=== PATIENT | female | born 1930 | race Caucasian/White ===

== ENCOUNTER 2017-07-17 22:07 | Inpatient (IN) ==
[2017-07-17] MEDS ORDERED: MORPHINE 2 MG/1 ML SYRINGE IV STA (22:45)
[2017-07-17] MEDS ORDERED: ONDANSETRON 4 MG/2 ML VIAL IV STA (22:45)
[2017-07-17] MEDS ORDERED: SODIUM CHLORIDE 0.9% 1,000 ML IV STA (22:45)
--- NOTE | 2017-07-17 22:48 | Emergency Department Note ---
Arrival - Arrival Chief Complaint: Abdominal / Flank Pain Stated Complaint: hurting in back &quizzy ED Nursing Triage Note: C/O LEFT SIDED BACK PAIN THAT RADIATES AROUND TO THE ABDOMEN. + NAUSEA Mode of Arrival: Wheelchair Limitations: No Limitations Source: Patient, Family Time Seen by Provider: 07/17/17 22:30 - History of Present Illness HPI Narrative: The patient complains of a left lower backache for the past week. She recalls no injury. She said he got better for a couple of days but started getting worse again 3 days ago. She describes it as sharp and worse with movement. She has had some nausea but no vomiting, diarrhea or constipation. She has had some questionable hematuria. The patient has a history of back problems and had back surgery many years ago. She denies any fever, rhinorrhea, sore throat , cough or other recent illness. Date of Last Menstrual Period: HYST Review of System - Review of System 12 point system: reviewed and no additional remarkable complaints except as stated - Review of System Constitutional: Absent: fever Head/Ears/Nose/Throat: Absent: nasal drainage, sore throat Respiratory: Absent: cough Cardiovascular: Absent: chest pain Gastrointestinal: Present: nausea. Absent: abdominal pain, vomiting Genitourinary female: Present: hematuria. Absent: dysuria Musculoskeletal: Present: back pain Neurological: Absent: weakness, numbness Medical,Surgical,& Family Hx - Medical History Neurology: History of: Parkinson's Disease (PRE PARKINSON'S) Endocrine: History of: Diabetes Mellitus (NIDDM) - Surgical History Orthopedic Surgeries: Surgical HX of;: Orthopedic Surgery (Hip fracture repair) , Spinal Surgery - Family History Family History: Reports;: Family Diabetes, Family Heart Disease, Family Stroke - Social History Smoking Status: Never smoker Frequency of Alcohol Use: None Type of Drug Use: None Exam Physical Examination: GENERAL: Alert. No acute distress. HEENT: Normocephalic and atraumatic. There is no nasal drainage. No pharyngeal erythema or exudate. NECK: Normal inspection. Supple. No lymphadenopathy or meningismus. LUNGS: No respiratory distress. Clear to auscultation bilaterally, no wheezes, rales or rhonchi. HEART: Regular rate and rhythm. ABDOMEN: Soft, nontender and nondistended with normoactive bowel sounds. BACK: Normal inspection. Mild to moderate left lower back tenderness. No CVA tenderness. No spinal tenderness. No swelling or deformity noted. SKIN: Color normal. Warm and dry. EXTREMITIES: Nontender. Normal range of motion. No pedal edema. NEUROLOGICAL/PSYCHIATRIC: Alert and oriented -3 with normal mood and affect. Cranial nerves normal. No motor or sensory deficit. Vital Signs: Vital Signs Temperature 97.3 F L 07/17/17 22:11 Pulse Rate 83 07/17/17 22:11 Respiratory Rate 18 07/17/17 22:11 Blood Pressure 182/86 07/17/17 22:11 O2 Sat by Pulse Oximetry 96 07/17/17 22:11 Course - Reevaluation(s) Reevaluation #1: The patient appears to be more comfortable after medications. Her urine does show a urinary tract infection and I am going to go ahead and give her some Cipro IV. We are still awaiting the complete chemistry. Time: 00:02 Reevaluation #2: The patient and the family want to be admitted. She lives by herself and they believe she will not be able to take care of herself with her back hurting like it is. In fact that is why the family was called today is because the patient could no longer take care of herself due to the pain. I discussed patient with Dr. Linda and will admit to him. Time: 01:23 Results - Labs CBC & BMP: 07/17/17 23:24 07/17/17 23:24 Lab Results: I have reviewed the patients labs Labs: Laboratory Tests 07/17/17 23:24 Urine Nitrate Positive H Urine Leukocytes Large H Urine RBC <1 Urine WBC 31 Urine WBC Clumps Moderate Urine Bacteria Moderate Ur Culture Indicated? Results to follow Laboratory Tests 07/17/17 23:24 Total Bilirubin < 0.39 AST 33 ALT 26 Alkaline Phosphatase 126 H Globulin 4.3 H - Impressions KUB: 1. Status post surgical changes in with previous cholecystectomy right lower quadrant surgery and previous left hip pinning 2. Nonspecific GI pattern. 3. Vascular calcifications 4. Degenerative spondylosis changes thoracolumbar spine. Disposition Clinical Impression: Back pain, UTI (urinary tract infection) Case discussed with: patient, patient's family Disposition: Still a Patient Condition: Stable Time of Disposition: :29
[2017-07-17] MEDS ORDERED: MORPHINE 2 MG/1 ML SYRINGE ONE (23:17)
[2017-07-17] MEDS ORDERED: ONDANSETRON 4 MG/2 ML VIAL ONE (23:17)
--- NOTE | 2017-07-17 23:37 | XRay Report ---
Exam: XR KUB Date: 07/17/2017 10:44 PM Indication: Abdominal pain back and flank pain Comparison: 03/07/2011 barium enema exam Technical: Supine imaging Findings: Cholecystectomy clips are present. Vascular plaque is present in these splenic artery. The lung bases reveal no acute findings. Degenerative change present thoracolumbar spine. A left sliding Crenshaw compression screw is present in the femoral head and neck region. Phleboliths are present true pelvis. The liver and spleen shadow and renal shadows are partially obscured. Surgical clips in the right lower quadrant present in the deep pelvis. Impression: 1. Status post surgical changes in with previous cholecystectomy right lower quadrant surgery and previous left hip pinning 2. Nonspecific GI pattern. 3. Vascular calcifications 4. Degenerative spondylosis changes thoracolumbar spine. PROCEDURE INTERPRETED AT [facility] DEPARTMENT OF RADIOLOGY Final Report Signed by: Dr. Yogesh Yeager
[2017-07-17 23:41] LABS: Basophils # 0.1 10*3/uL (0.0-0.2); Basophils % 0.5 % (0.0-0.8); Eosinophils # 0.4 10*3/uL (0.0-0.87); Eosinophils % 3.3 % (0.00-10.9); Hematocrit 33.7 VOL% (35.7-47.0); Hemoglobin 10.5 GM/DL (12.0-16.0); Immature Granulocytes % 0.5 %; Immature Granulocytes Absolute 0.06 #; Lymphocytes # 2.5 10*3/uL (1.4-4.0); Lymphocytes % 22.5 % (21.3-54.2); Mean Corpuscular HGB Conc 31.2 GM/DL (32-36); Mean Corpuscular Hemoglobin 27 PG (27-34); Mean Platelet Volume 10.7 FL (9.6-12.0); Monocytes # 1.1 10*3/uL (0.11-0.8); Monocytes % 9.8 % (1.7-12.7); Neutrophils % 63.4 % (38.7-73.9); Platelet Count 273 T/CUMM (130-400); Red Blood Count 3.83 MC/CUMM (3.8-5.5); Red Cell Distribution Width 15.9 % (9.3-17.3); White Blood Count 11.1 T/CUMM (4-12)
[2017-07-17 23:55] LABS: Apearance,Urine Slightly Hazy (Clear); Bacteria,Urine Moderate /HPF (Few); Bilirubin,Urine Negative (Negative); Blood, Urine Negative (Negative); Glucose,Urine (UA) Negative (Negative); Ketones,Urine Negative (Negative); Nitrite,Urine Positive (Negative); Protein,Urine Negative; RBC,Urine <1 /HPF (0-4); Squamous Epithelial Cell,Urine Occasional /HPF (0-10); Transitional Epi Cells,Urine Occasional /HPF (<1); Urine Color Amber (Yellow); Urine Specific Gravity 1.005 (1.001-1.035); WBC,Urine 31 /HPF (0-6)
[2017-07-18] MEDS ORDERED: CIPROFLOXACIN INJ 400 MG in PREMIX 1 EACH IV STA (00:03)
[2017-07-18 00:37] LABS: Alanine Aminotransferase 26 U/L (13-56); Albumin 3.6 G/DL (3.4-5.0); Alkaline Phosphatase 126 U/L (45-117); Aspartate Amino Transferase 33 U/L (0-37); Bilirubin,Total < 0.39 MG/DL (0.2-1.0); Blood Urea Nitrogen 21 MG/DL (7-18); Calcium 8.9 MG/DL (8.5-10.1); Glucose 101 MG/DL (74-106); Osmolality,Calculated 283.3 MOS/KG (273-304); Potassium 4.7 MMOL/L (3.5-5.1); Sodium 141 MMOL/L (136-145); Total Protein 7.9 G/DL (6.4-8.3)
[2017-07-18] MEDS ORDERED: CIPROFLOXACIN 400 MG/200 ML PREMIX IV ONE (00:44)
[2017-07-18] MEDS ORDERED: ONDANSETRON 4 MG/2 ML VIAL IV PRN (02:57)
[2017-07-18] MEDS ORDERED: ACETAMINOPHEN 325 MG TABLET PO PRN (02:57)
[2017-07-18] MEDS ORDERED: GLUCAGON 1 MG VIAL IM PRN (02:57)
[2017-07-18] MEDS ORDERED: MORPHINE 2 MG/1 ML SYRINGE IV PRN (02:57)
[2017-07-18] MEDS ORDERED: DEXTROSE 50% 25 GM/50 ML SYRINGE IV PRN (02:57)
--- NOTE | 2017-07-18 07:11 | Family Practice History&Phys ---
Assessment and Plan (1) UTI (urinary tract infection) Status: Acute Assessment and plan: 07/18/2017: Patient's on IV Cipro. Cultures are pending. Renal ultrasound will be ordered to ensure she does not have any evidence of hydronephrosis. Current Visit: Yes History of Present Illness Chief complaint: Back pain and dysuria History of present illness: Ms. Easley is a 87 year old female Patient is a 87-year-old white female who lives alone and manages her own affairs. Patient states she developed some dysuria and back pain approximately a week ago. Patient states his got worse and she started developing nausea and subjective fever. She presented emergency room was found to have a urinary tract infection. Her vital signs emergency room revealed normal to slightly elevated blood pressure. Patient was admitted for treatment of her urinary tract infection. She has not had any vomiting. She is placed on IV Cipro and cultures are pending. Home Medications Medication Instructions Recorded Confirmed Type Aspirin [Ecotrin] 81 mg PO DAILY 07/18/17 07/18/17 History Atorvastatin [Lipitor] 80 mg PO DAILY 07/18/17 07/18/17 History Citalopram [CeleXA] 20 mg PO DAILY 07/18/17 07/18/17 History Insulin Aspart Prot/Insuln Asp 24 unit SUBCUT BEDTIME 07/18/17 07/18/17 History [NovoLOG Mix 70-30 FlexPen] Insulin Aspart Prot/Insuln Asp 40 unit SQ QAM 07/18/17 07/18/17 History [Novolog Mix 70-30 Flexpen Syrn] Levothyroxine Tab [Synthroid Tab] 75 mcg PO DAILY@0700 07/18/17 07/18/17 History Magnesium Oxide 400 mg PO BID 07/18/17 07/18/17 History OLANZapine [Olanzapine] 2.5 mg PO DAILY 07/18/17 07/18/17 History Ranitidine Tab [Zantac Tab] 150 mg PO BID 07/18/17 07/18/17 History metFORMIN [Glucophage] 1,000 mg PO BID W/MEALS 07/18/17 07/18/17 History Allergies Allergy/AdvReac Type Severity Reaction Status Date / Time No Known Allergies Allergy Unverified 07/18/17 02:12 - Constitutional Constitutional: Present: chills, fatigue, fever(s), weakness. Absent: weight gain, weight loss - EENT Eyes: Absent: blurry vision, loss of vision Ears: Absent: decreased hearing, ear pain Nose, mouth and throat: Absent: nasal congestion, sinus pressure, sore throat - Cardiovascular Cardiovascular: Absent: chest pain at rest, dyspnea, orthopnea, palpitations, PND - Respiratory Respiratory: Absent: cough, dyspnea, dyspnea on exertion, wheezing - Gastrointestinal Gastrointestinal: Present: abdominal pain, nausea. Absent: bloating, diarrhea, dyspepsia, dysphagia, hematochezia, melena, vomiting - Genitourinary Genitourinary: Present: as per HPI, dysuria, urinary frequency - Musculoskeletal Musculoskeletal: Present: back pain. Absent: joint swelling - Neurological Neurological: Absent: confusion, focal weakness, numbness, paresthesias - Psychiatric Psychiatric: Absent: confusion, depression - Endocrine Endocrine: Present: fatigue. Absent: polydipsia, polyphagia - Hematologic/Lymphatic Hematologic/Lymphatic: Absent: easy bleeding, easy bruising Medical,Surgical,& Family Hx - Medical History Neurology: History of: Parkinson's Disease (PRE PARKINSON'S) Endocrine: History of: Diabetes Mellitus (NIDDM) - Surgical History Orthopedic Surgeries: Surgical HX of;: Orthopedic Surgery (Hip fracture repair) , Spinal Surgery - Family History Family History: Reports;: Family Diabetes, Family Heart Disease, Family Stroke - Social History Smoking Status: Never smoker Frequency of Alcohol Use: None Type of Drug Use: None Exam - Constitutional Vitals: Period Temp Pulse Resp BP Sys/Melton Pulse Ox Last 24 Hr 97.3 F-97.3 F 73-86 18-20 110-182/66-94 94-99 Exam: General: Objective patient is a well-developed white female in no acute distress. She is quite pleasant and able to give an excellent history. HEENT: Pupils equal and reactive to light. Patent nares and airway Neck: No meningismus, adenopathy, thyromegaly. There are no auscultated carotid bruits. Cardiovascular: Regular rhythm. No murmurs or gallops Chest: Clear to auscultation without rales rhonchi wheezes. Abdomen: The abdomen is soft and slightly protuberant. Bowel sounds are noted in all quadrants. She did have some diffuse abdominal tenderness directly but no rebound or guarding were noted. Neuro: Cranial nerves intact and DTRs and strength symmetric in all extremities. Dermatologic: No evidence of abnormal lesions or masses. Musculoskeletal: There is no joint swelling or tenderness or deformity. Extremities: There is no calf swelling or tenderness. Results - Labs CBC & BMP: 07/17/17 23:24 07/17/17 23:24 Lab Results: I have reviewed the past 24 hour labs
[2017-07-18] MEDS: INSULIN ASPART PROTAMINE/ASPART 70/30 100 UNIT/ML SUBCUT SCH ×2 (08:24→16:12)
[2017-07-18] MEDS: INSULIN LISPRO 100 UNIT/ML SUBCUT SCH ×4 (08:24→21:14)
[2017-07-18] MEDS: SODIUM CHLORIDE 0.45% 1,000 ML IV SCH ×3 (08:38→19:00)
[2017-07-18] MEDS: CIPROFLOXACIN INJ 400 MG in PREMIX 1 EACH IV SCH ×2 (08:39→21:13)
[2017-07-18] MEDS: PHENAZOPYRIDINE 95 MG TABLET PO SCH ×3 (08:39→21:15)
[2017-07-18] MEDS: ASPIRIN EC 81 MG TABLET PO SCH (08:39)
[2017-07-18] MEDS: FAMOTIDINE 20 MG TABLET PO SCH ×2 (08:39→21:15)
[2017-07-18] MEDS: PANTOPRAZOLE 40 MG TABLET PO SCH (08:39)
[2017-07-18] MEDS: OLANZapine 2.5 MG TABLET PO SCH (08:40)
[2017-07-18] MEDS: LEVOTHYROXINE 75 MCG TABLET PO SCH (08:40)
[2017-07-18] MEDS: metFORMIN 500 MG TABLET PO SCH ×2 (08:40→16:58)
[2017-07-18] MEDS: DOCUSATE SODIUM 100 MG CAPSULE PO SCH ×2 (08:40→21:15)
[2017-07-18] MEDS: MAGNESIUM OXIDE 400 MG TABLET PO SCH ×2 (08:40→21:15)
[2017-07-18] MEDS: ATORVASTATIN 80 MG TABLET PO SCH (08:40)
[2017-07-18] MEDS: traMADol 50 MG TABLET PO PRN ×2 (08:47→18:55)
--- NOTE | 2017-07-18 10:39 | Ultrasound Report ---
Renal ultrasound Indication: Flank pain, urinary tract infection Comparison: None available Findings: Multiple cyst are present on both kidneys, the largest on the right measures up to 1.4 cm. The largest on the left measures up to 2.6 cm. Otherwise the are normal in size and echogenicity. No hydronephrosis or nephrolithiasis is seen. The right renal length is 10.4 cm. The left renal length is 9.4 cm. No free fluid or other abnormality is seen. Impression: Bilateral simple appearing renal cysts. No other evidence of abnormality demonstrated. Ultrasound images stored and captured. PROCEDURE INTERPRETED AT [facility] DEPARTMENT OF RADIOLOGY Final Report Signed by: Dr. Franklin Fortune
[2017-07-19] MEDS: LEVOTHYROXINE 75 MCG TABLET PO SCH (06:20)
[2017-07-19] MEDS: SODIUM CHLORIDE 0.45% 1,000 ML IV SCH ×3 (06:20→16:39)
--- NOTE | 2017-07-19 07:56 | Family Practice Progress Note ---
Family Practice - PN: Subj Interval history: Patient states she had a good night and she is not having any dysuria though she is having urinary frequency. I told we have been giving her quite a bit of fluids to augment her urine output. She understands. She is a delightful little lady and really has no complaints this morning. Exam (Progress Note) - Constitutional Vitals: Period Temp Pulse Resp BP Sys/Melton Pulse Ox Last 24 Hr 97.9 F-98.4 F 79-92 18-19 144-166/67-83 89-96 Exam: Objective well-developed white female no acute distress. She is able give an excellent history. She is lying flat in bed and appears comfortable. Cardiovascular: Heart rate is regular without murmurs or gallops. Respiratory: Lungs clear to auscultation bilaterally. Abdomen: The abdomen is slightly protuberant but nontender to palpation this morning. Bowel sounds were appreciated. Results - Labs CBC & BMP: 07/17/17 23:24 07/17/17 23:24 Lab Results: I have reviewed the past 24 hour labs Assessment and Plan (1) UTI (urinary tract infection) Status: Acute Assessment and plan: 07/18/2017: Patient's on IV Cipro. Cultures are pending. Renal ultrasound will be ordered to ensure she does not have any evidence of hydronephrosis. 07/19/2017: Patient's culture results are not resulted. There is no evidence of hydronephrosis on her ultrasound. Current Visit: Yes
[2017-07-19] MEDS: INSULIN LISPRO 100 UNIT/ML SUBCUT SCH ×4 (09:27→21:08)
[2017-07-19] MEDS: INSULIN ASPART PROTAMINE/ASPART 70/30 100 UNIT/ML SUBCUT SCH ×2 (09:28→16:39)
[2017-07-19] MEDS: CIPROFLOXACIN INJ 400 MG in PREMIX 1 EACH IV SCH ×2 (09:29→21:10)
[2017-07-19] MEDS: ASPIRIN EC 81 MG TABLET PO SCH (09:29)
[2017-07-19] MEDS: ATORVASTATIN 80 MG TABLET PO SCH (09:30)
[2017-07-19] MEDS: DOCUSATE SODIUM 100 MG CAPSULE PO SCH ×2 (09:30→21:08)
[2017-07-19] MEDS: PHENAZOPYRIDINE 95 MG TABLET PO SCH ×3 (09:31→21:08)
[2017-07-19] MEDS: MAGNESIUM OXIDE 400 MG TABLET PO SCH ×2 (09:31→21:08)
[2017-07-19] MEDS: FAMOTIDINE 20 MG TABLET PO SCH ×2 (09:31→21:08)
[2017-07-19] MEDS: PANTOPRAZOLE 40 MG TABLET PO SCH (09:31)
[2017-07-19] MEDS: metFORMIN 500 MG TABLET PO SCH ×2 (09:32→17:19)
[2017-07-19] MEDS: OLANZapine 2.5 MG TABLET PO SCH (09:32)
[2017-07-19] MEDS: traMADol 50 MG TABLET PO PRN ×4 (09:44→21:07)
[2017-07-20] MEDS: SODIUM CHLORIDE 0.45% 1,000 ML IV SCH ×4 (04:08→20:50)
[2017-07-20] MEDS: LEVOTHYROXINE 75 MCG TABLET PO SCH (06:03)
[2017-07-20] MEDS: CIPROFLOXACIN INJ 400 MG in PREMIX 1 EACH IV SCH ×2 (08:12→20:56)
[2017-07-20] MEDS: INSULIN LISPRO 100 UNIT/ML SUBCUT SCH ×4 (08:13→21:14)
[2017-07-20] MEDS: INSULIN ASPART PROTAMINE/ASPART 70/30 100 UNIT/ML SUBCUT SCH ×2 (08:13→18:21)
[2017-07-20] MEDS: MAGNESIUM OXIDE 400 MG TABLET PO SCH ×2 (08:14→20:52)
[2017-07-20] MEDS: ASPIRIN EC 81 MG TABLET PO SCH (08:14)
[2017-07-20] MEDS: PANTOPRAZOLE 40 MG TABLET PO SCH (08:14)
[2017-07-20] MEDS: traMADol 50 MG TABLET PO PRN ×3 (08:14→20:57)
[2017-07-20] MEDS: OLANZapine 2.5 MG TABLET PO SCH (08:14)
[2017-07-20] MEDS: ATORVASTATIN 80 MG TABLET PO SCH (08:14)
[2017-07-20] MEDS: PHENAZOPYRIDINE 95 MG TABLET PO SCH (08:14)
[2017-07-20] MEDS: DOCUSATE SODIUM 100 MG CAPSULE PO SCH ×2 (08:14→20:52)
[2017-07-20] MEDS: FAMOTIDINE 20 MG TABLET PO SCH ×2 (08:15→20:52)
[2017-07-20] MEDS: metFORMIN 500 MG TABLET PO SCH (08:15)
--- NOTE | 2017-07-20 09:19 | Internal Med Progress Note ---
Assessment and Plan (1) Back pain Status: Acute Assessment and plan: 87-year-old female admitted to acute care * Back pain. Patient is having back pain off and on for past 2 weeks. She denies any falls or injuries. It is sharp pain which gets worse with the movement. Will check x-ray of lumbosacral spine and thoracic spine. She may require MRI. Will get PT and OT to see the patient. We will start her on muscle relaxant. * UTI. Patient's cultures are consistent with contaminant. She is on IV Cipro * Diabetes. Continue insulin * Hyperlipidemia. Continue atorvastatin Current Visit: Yes (2) Depression Status: Acute Current Visit: Yes (3) Diabetes Status: Acute Current Visit: Yes (4) Hyperlipidemia Status: Acute Current Visit: Yes (5) Gastroesophageal reflux disease Status: Acute Current Visit: Yes (6) UTI (urinary tract infection) Status: Acute Current Visit: Yes Internal Medicine - PN: Subj Interval history: Patient seen and examined. Chart reviewed. Patient is complaining of low back pain. Her pain has not improved. She has been having difficulty to get around. This has been going off and on for past few weeks. She was admitted and started on antibiotics. Her urine culture shows contamination. She is on IV Cipro Exam (Progress Note) - Constitutional Vitals: Period Temp Pulse Resp BP Sys/Melton Pulse Ox Last 24 Hr 97.7 F-98.9 F 78-86 17- 137-171/67-94 90-93 Exam: Examination: GENERAL: NAD. NECK: Neck is supple. CVS: Regular rate and rhythm. S1 and S2 are normal. RESPIRATORY: Lungs are clear. No rales or rhonchi. ABDOMEN: Soft and nontender. Abdomen is protuberant. Bowel sounds are present. No hepatosplenomegaly. EXT: No edema. Peripheral pulses are present. [employer]: Patient is awake, alert and oriented to time place and person. Motor strength is 3-4/5 SKIN: Warm and dry. MSK: She has some spasm in the lumbosacral spine. Results - Labs CBC & BMP: 07/17/17 23:24 07/17/17 23:24
[2017-07-20 09:59] LABS: Basophils % 0.3 % (0.0-0.8); Eosinophils # 0.5 10*3/uL (0.0-0.87); Eosinophils % 3.6 % (0.00-10.9); Hematocrit 34.2 VOL% (35.7-47.0); Hemoglobin 10.2 GM/DL (12.0-16.0); Immature Granulocytes % 0.5 %; Immature Granulocytes Absolute 0.06 #; Lymphocytes # 4.7 10*3/uL (1.4-4.0); Lymphocytes % 36.4 % (21.3-54.2); Mean Corpuscular HGB Conc 29.8 GM/DL (32-36); Mean Corpuscular Hemoglobin 27 PG (27-34); Mean Corpuscular Volume 91.4 FL (87-102); Mean Platelet Volume 10.2 FL (9.6-12.0); Monocytes # 1.1 10*3/uL (0.11-0.8); Monocytes % 8.6 % (1.7-12.7); Neutrophils # 6.6 10*3/uL (1.4-7.4); Neutrophils % 50.6 % (38.7-73.9); Platelet Count 252 T/CUMM (130-400); Red Blood Count 3.74 MC/CUMM (3.8-5.5); Red Cell Distribution Width 15.9 % (9.3-17.3); White Blood Count 12.9 T/CUMM (4-12)
[2017-07-20 10:28] LABS: Calcium 7.8 MG/DL (8.5-10.1); Osmolality,Calculated 281.4 MOS/KG (273-304); Potassium 3.6 MMOL/L (3.5-5.1)
--- NOTE | 2017-07-20 10:57 | XRay Report ---
XR thoracic spine 2V ap/lat Indication: Back pain Comparison: None available Findings: No fracture is seen. Vertebral body heights and alignment are normal. The disc space heights are well-maintained. There is hypertrophic osteophytes with bridging present at multiple levels. No other significant degenerative change is present. Impression: Hypertrophic osteophytes with bridging, can be seen with diffuse idiopathic skeletal hyperostosis. PROCEDURE INTERPRETED AT [facility] DEPARTMENT OF RADIOLOGY Final Report Signed by: Dr. Franklin Fortune
--- NOTE | 2017-07-20 11:39 | XRay Report ---
XR lumbar spine w flex/ext, 8 images Clinical Information: Back pain Comparison: None available Findings: Multilevel degenerative changes are noted throughout the lumbar spine. Vertebral body heights and intervertebral disc spaces are generally maintained. No pars defects are visualized on the oblique images. Mild-moderate disc space loss is noted at L4-5 and L5-S1. There is also grade 1 retrolisthesis of L4 relative to L5. Advanced facet arthropathy is noted at L3-S1. There is moderate (30-40%) height loss at L1, which is age-indeterminate. Flexion and extension views do not demonstrate evidence of abnormal translation of vertebral bodies. Atherosclerotic changes of the abdominal aorta are noted. Postsurgical changes with orthopedic hardware at the left proximal femur are partially imaged. Cholecystectomy clips noted. Impression: No acute fracture or subluxation in the Lumbar spine. Age-indeterminate compression deformity at L1. Correlate with focal tenderness. Moderate to advanced degenerative changes as detailed above. PROCEDURE INTERPRETED AT [facility] DEPARTMENT OF RADIOLOGY Final Report Signed by: Mayank Grigsby
--- NOTE | 2017-07-20 12:38 | Pain Management Consult Note ---
Assessment and Plan (1) Fracture, lumbar vertebra, compression Problem details: New onset low back pain with L1 fracture on x-ray Status: Acute Assessment and plan: . Lumbar compression fracture. The patient has new onset low back pain that started 2 weeks ago spontaneously and then suddenly worse 2 days ago. She is essentially bedbound due to the severity of her pain. X-rays demonstrate a L1 fracture with approximately 40% height loss, with both superior and inferior endplate involvement. This does appear to be recent however it is problematic dating the fracture by x-ray alone. Will arrange MRI lumbosacral spine, and if recent fracture I think it is medically necessary to proceed with kyphoplasty given the severity of pain and loss of activities of daily living. The way she is going now she will not be able to care for self. If we can fix a fracture and mobilize her she can once again become more independent. y Current Visit: Yes Qualifiers: Encounter type: initial encounter Lumbar vertebra fracture level: L1 Fracture type: closed Qualified Code(s): S32.010A - Wedge compression fracture of first lumbar vertebra, initial encounter for closed fracture History of Present Illness Chief complaint: Low back pain History of present illness: Ms. Easley is a 87 year old female with recent onset low back pain. She denies injury. Throbbing aching pain. Started 2 weeks ago spontaneously and then suddenly 2 days ago became intolerable. Over the past 2 days she has not been out of bed but twice to use the restroom. The pain is a throbbing aching pain worse with any movement. It is constant. Home Medications Medication Instructions Recorded Confirmed Type Aspirin [Ecotrin] 81 mg PO DAILY 07/18/17 07/18/17 History Atorvastatin [Lipitor] 80 mg PO DAILY 07/18/17 07/18/17 History Citalopram [CeleXA] 20 mg PO DAILY 07/18/17 07/18/17 History Insulin Aspart Prot/Insuln Asp 24 unit SUBCUT BEDTIME 07/18/17 07/18/17 History [NovoLOG Mix 70-30 FlexPen] Insulin Aspart Prot/Insuln Asp 40 unit SQ QAM 07/18/17 07/18/17 History [Novolog Mix 70-30 Flexpen Syrn] Levothyroxine Tab [Synthroid Tab] 75 mcg PO DAILY@0700 07/18/17 07/18/17 History Magnesium Oxide 400 mg PO BID 07/18/17 07/18/17 History OLANZapine [Olanzapine] 2.5 mg PO DAILY 07/18/17 07/18/17 History Ranitidine Tab [Zantac Tab] 150 mg PO BID 07/18/17 07/18/17 History metFORMIN [Glucophage] 1,000 mg PO BID W/MEALS 07/18/17 07/18/17 History Allergies Allergy/AdvReac Type Severity Reaction Status Date / Time No Known Allergies Allergy Unverified 07/18/17 02:12 Medical,Surgical,& Family Hx - Medical History Neurology: History of: Parkinson's Disease (PRE PARKINSON'S) Endocrine: History of: Diabetes Mellitus (NIDDM) - Surgical History Orthopedic Surgeries: Surgical HX of;: Orthopedic Surgery (Hip fracture repair) , Spinal Surgery - Family History Family History: Reports;: Family Diabetes, Family Heart Disease, Family Stroke - Social History Smoking Status: Never smoker Frequency of Alcohol Use: None Type of Drug Use: None - Constitutional Constitutional: Present: fatigue, malaise - Gastrointestinal Gastrointestinal: Present: constipation - Musculoskeletal Musculoskeletal: Present: back pain - Neurological Neurological: Present: paresthesias Exam - Constitutional Vitals: Period Temp Pulse Resp BP Sys/Melton Pulse Ox Last 24 Hr 97.7 F-98.9 F 78-86 17-29 137-171/67-94 90-93 General appearance: mild distress, over weight - Head Head exam: Present: normocephalic - Respiratory Respiratory exam: Present: clear to auscultation bilaterally - Cardiovascular Cardiovascular exam: Present: RRR - GI/Abdominal GI/Abdominal exam: Present: normal bowel sounds - Back Exam Back exam: Present: vertebral tenderness - Neurological Exam Neurological exam: Present: alert, oriented X3, CN II-XII intact - Skin Skin exam: Present: normal color Results - Labs CBC & BMP: 07/20/17 09:50 07/20/17 09:50
[2017-07-20] MEDS: METHOCARBAMOL 750 MG TABLET PO SCH ×2 (14:19→20:52)
--- NOTE | 2017-07-20 17:53 | Magnetic Resonance Report ---
Exam: MRI thoracic spine without contrast Indication: 87-year-old female with worsening back pain Comparison: No relevant comparisons Technique: Multisequence, multiplanar imaging of the thoracic spine was performed without contrast Findings: Thoracic kyphosis, vertebral body heights and marrow signal are preserved. Cord signal is normal. No intra or extradural abnormalities. Disc desiccation throughout with no significant disc bulging. Small anterolateral osteophytes are noted, age-appropriate. Inferior endplate deformity at L1 with reactive edema No soft tissue abnormalities. Impression: 1. Unremarkable noncontrast MRI thoracic spine 2. Slight deformity with reactive changes involving the inferior endplate of L1, cannot exclude insufficiency fracture PROCEDURE INTERPRETED AT [facility] DEPARTMENT OF RADIOLOGY Final Report Signed by: Ayde Lara MD
--- NOTE | 2017-07-20 18:34 | Magnetic Resonance Report ---
Exam: MRI lumbar spine without contrast Indication: 87 yearsfemale with worsening back pain Comparison: No relevant comparisons Technique: Multisequence, multiplanar imaging of the lumbar spine was performed without contrast Findings: with straightening of the lumbar lordosis. Deformity along the inferior endplate of L1 with curvilinear low and high T1 signal abnormality. Adjacent T2 signal within the prevertebral soft tissues Cord signal is normal terminating at T12-L1. No intra or extradural abnormalities. Disc spaces desiccation throughout with loss of disc space height at L4 S1. T12-L1: Unremarkable L1-L2: Unremarkable L2-L3: Slight annular disc bulging, asymmetric right lateral hypertrophic endplate changes. No significant central or foraminal stenosis L3-L4: Hypertrophic endplate changes, asymmetric left lateral with moderate facet arthrosis. Mild trefoil configuration of the spinal canal with no significant central or foraminal stenosis L4-L5: Annular disc bulging, predominately anterolateral with Hypertrophic endplate changes. Moderate to severe facet arthrosis. Effacement of the lateral recesses bilaterally. No significant central stenosis. Annular fissuring extending right lateral to posterior at midline. Moderate bilateral foraminal narrowing, slightly more significant on the left L5-S1: Slight annular disc bulging with hypertrophic endplate changes and moderate facet arthrosis. No significant central stenosis. Moderate to severe bilateral foraminal narrowing No soft tissue abnormalities. Impression: 1. Inferior endplate insufficiency fracture at L1 2. En bloc retrolisthesis at L4 with straightening of the lumbar lordosis 3. Degenerative disc changes with right lateral to posterior annular fissuring of L4 with near complete loss of disc space height and moderate bilateral foraminal narrowing 4. Moderate to severe bilateral foraminal narrowing at L5-S1 PROCEDURE INTERPRETED AT [facility] DEPARTMENT OF RADIOLOGY Final Report Signed by: Ayde Lara MD
[2017-07-21] MEDS: SODIUM CHLORIDE 0.45% 1,000 ML IV SCH ×2 (04:08→10:16)
[2017-07-21] MEDS: LEVOTHYROXINE 75 MCG TABLET PO SCH ×2 (06:21→15:29)
[2017-07-21] MEDS: INSULIN LISPRO 100 UNIT/ML SUBCUT SCH ×4 (07:30→21:41)
--- NOTE | 2017-07-21 07:41 | Event Note ---
MRI shows acute L1 fx. Plan on Kypho later this am, around noon.
[2017-07-21] MEDS: INSULIN ASPART PROTAMINE/ASPART 70/30 100 UNIT/ML SUBCUT SCH ×2 (08:00→16:52)
[2017-07-21] MEDS ORDERED: ceFAZolin 2,000 MG in SODIUM CHLORIDE 0.9% 100 ML IV ONE (08:00)
--- NOTE | 2017-07-21 08:43 | Internal Med Progress Note ---
Assessment and Plan (1) Back pain Status: Acute Assessment and plan: 87-year-old female admitted to acute care * Back pain. Results of MRI noted. She will require kyphoplasty. Plan today. 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 She may require nerve blocks. Hopefully this will make her pain better control and she can resume independent living. * UTI. Change to p.o. Cipro * Diabetes. Continue insulin * Hyperlipidemia. Continue atorvastatin * Consult swing bed unit for PT and OT. Current Visit: Yes (2) Depression Status: Acute Current Visit: Yes (3) Diabetes Status: Acute Current Visit: Yes (4) Hyperlipidemia Status: Acute Current Visit: Yes (5) Gastroesophageal reflux disease Status: Acute Current Visit: Yes (6) UTI (urinary tract infection) Status: Acute Current Visit: Yes Internal Medicine - PN: Subj Interval history: Patient seen and examined. Chart reviewed. She appears to be more comfortable this morning. Her pain is better controlled but she is quite uncomfortable when she moves around. Exam (Progress Note) - Constitutional Vitals: Period Temp Pulse Resp BP Sys/Melton Pulse Ox Last 24 Hr 97.2 F-99.2 F 78-88 18-20 124-155/60-86 90-96 Exam: Examination: GENERAL: NAD. NECK: Neck is supple. CVS: Regular rate and rhythm. RESPIRATORY: Lungs are clear. Abdomen: Soft and nontender. Bowel sounds are present ELECTROPHYSIOLOGY SCIENTIST: Patient is awake, alert and oriented to time place and person. Motor strength is 3-4/5 SKIN: Warm and dry. MSK: She has some spasm in the lumbosacral spine. Results - Labs CBC & BMP: 07/20/17 09:50 07/20/17 09:50 Lab Results: I have reviewed the past 24 hour labs
[2017-07-21] MEDS: FAMOTIDINE 20 MG TABLET PO SCH ×2 (09:00→21:42)
[2017-07-21] MEDS: METHOCARBAMOL 750 MG TABLET PO SCH ×3 (09:00→21:42)
[2017-07-21] MEDS: DOCUSATE SODIUM 100 MG CAPSULE PO SCH ×2 (09:00→21:42)
[2017-07-21] MEDS: MAGNESIUM OXIDE 400 MG TABLET PO SCH ×2 (09:00→21:42)
[2017-07-21] MEDS: ASPIRIN EC 81 MG TABLET PO SCH (09:00)
[2017-07-21] MEDS: DEXTROSE 5% NACL 0.45% 1,000 ML IV SCH (09:10)
--- NOTE | 2017-07-21 10:26 | Order Completion Report ---
See report scanned to EMR
[2017-07-21 10:53] LABS: Basophils % 0.4 % (0.0-0.8); Eosinophils % 5.5 % (0.00-10.9); Hematocrit 30.6 VOL% (35.7-47.0); Hemoglobin 9.2 GM/DL (12.0-16.0); Lymphocytes % 27.6 % (21.3-54.2); Mean Corpuscular HGB Conc 30.1 GM/DL (32-36); Mean Corpuscular Hemoglobin 27 PG (27-34); Mean Platelet Volume 10.5 FL (9.6-12.0); Monocytes % 10.5 % (1.7-12.7); Neutrophils % 55.4 % (38.7-73.9); Platelet Count 231 T/CUMM (130-400); Red Blood Count 3.44 MC/CUMM (3.8-5.5); White Blood Count 8.2 T/CUMM (4-12)
[2017-07-21 10:54] LABS: Eosinophils # 0.5 10*3/uL (0.0-0.87); Immature Granulocytes % 0.6 %; Immature Granulocytes Absolute 0.05 #; Lymphocytes # 2.3 10*3/uL (1.4-4.0); Monocytes # 0.9 10*3/uL (0.11-0.8); Neutrophils # 4.6 10*3/uL (1.4-7.4)
[2017-07-21 11:08] LABS: Calcium 7.7 MG/DL (8.5-10.1); Osmolality,Calculated 281.4 MOS/KG (273-304); Potassium 4.1 MMOL/L (3.5-5.1)
[2017-07-21] MEDS ORDERED: PROPOFOL 200 MG/20 ML VIAL IV ONE (12:15)
[2017-07-21] MEDS ORDERED: BUPIVACAINE 0.5% 50 ML VIAL ONE (12:35)
[2017-07-21] MEDS ORDERED: TISSUE ADHESIVE 1 EACH APPLICATOR TOP ONE (12:50)
--- NOTE | 2017-07-21 13:05 | Operative Note ---
Date of procedure: 07/21/17 Pre-op diagnosis: Lumbar compression fracture Post-op diagnosis: same Procedure: Preoperative diagnosis: #1 lumbar compression fracture acute L1 Postoperative diagnosis: Same Procedure: Kyphoplasty L1 Anesthesia: MAC Complications: None Findings: The patient tolerated the procedure well Estimated blood loss: Minimal History of present illness: The patient very pleasant 87-year-old female who sustained a lumbar compression fracture over the past 2 weeks and has severe pain associated with it to the point that she is having trouble even mobilizing and is essentially bedbound. Due to the loss of activities of daily living and severe severe pain she is a candidate for kyphoplasty. After today's procedure is reasonable to mobilize her. Procedure note: The risks benefits and indications of the procedure were explained to the patient and her family, she understood these, and they wish to proceed. The patient was placed in the prone position on the operating table, all pressure points padded, and then her back was prepped with alcohol ChloraPrep. Her back then was sterilely draped in strict sterile technique was used throughout the procedure. Skin was raised above the pedicles of L1 and viewed under fluoroscopy. A stab wound was 11 blade scalpel was made through the skin wheals into the stab wounds advanced the 11-gauge bone trochars. These were advanced under careful fluoroscopic control until destruct the posterior aspect of the pedicles bilaterally using an oblique approach at L1. Using a bone mallet the bone trochars were driven down to the pedicles and into the posterior aspect of the L1 vertebral body. Once adequate bone trocar placement had been achieved I then obtain a biopsy to rule out other pathological causes of the fracture. The advertising assistant manager then mixed the bone cement which was radiopaque methylmethacrylate. I then placed the hand drill into the vertebral body to make a pathway for the balloon bone tamps. The balloon bone tamps and were placed into the vertebral body and inflated between 100 150 pounds per square and she is holding between 3 and 4 cc of contrast of fluid. I then removed the balloon bone tamps. Using the bone filler syringe with long filler needle attached I then placed the needle into the device of the bone trochars and injected the bone cement under continuous lateral fluoroscopy. A total of 5-1/2 cc of the bone cement was injected into the L1 vertebral body. There was excellent filling throughout the vertebral body. The status then replaced back into the bone trochars and the bone trochars removed intact. Using skin glue the skin was closed sterilely. The patient then was taken to recovery in satisfactory condition. Anesthesia: MAC Surgeon / Physician: Keanu Pino Estimated blood loss: minimal Specimens: none sent Condition: stable Disposition: PACU Results - Labs CBC & BMP: 07/21/17 10:35 07/21/17 10:35 Discharge Plan - Discharge Data Condition at Discharge: Stable Discharge Diet: advance to your usual diet Activity: increase activity as tolerated (With assistance) Hygiene: may shower Weight Bearing at Discharge: weight bear as tolerated (With assistance) - Discharge Medications No Action Insulin Aspart Prot/Insuln Asp [Novolog Mix 70-30 Flexpen Syrn] 40 unit SQ QAM metFORMIN [Glucophage] 1,000 mg PO BID W/MEALS OLANZapine [Olanzapine] 2.5 mg PO DAILY Citalopram [CeleXA] 20 mg PO DAILY Atorvastatin [Lipitor] 80 mg PO DAILY Levothyroxine Tab [Synthroid Tab] 75 mcg PO DAILY@0700 Ranitidine Tab [Zantac Tab] 150 mg PO BID Insulin Aspart Prot/Insuln Asp [NovoLOG Mix 70-30 FlexPen] 24 unit SUBCUT BEDTIME Aspirin [Ecotrin] 81 mg PO DAILY Magnesium Oxide 400 mg PO BID - Follow Up or Referral - Forms/Instructions
[2017-07-21] MEDS ORDERED: KETAMINE 500 MG/10 ML VIAL ONE (13:06)
[2017-07-21] MEDS ORDERED: HYDROmorphone 2 MG/1 ML VIAL IV PRN (13:19)
[2017-07-21] MEDS ORDERED: ONDANSETRON 4 MG/2 ML VIAL IV PRN (13:19)
--- NOTE | 2017-07-21 13:29 | Anesthesia Post-Op ---
Anesthesia Post OP - Post Ansesthetic Evaluation Patient seen in post op: Yes Resp: within normal limits CV: within normal limits Mental: within normal limits Temp: within normal limits [id number]: within normal limits Nausea and Vomiting: within normal limits Pain: within normal limits
[2017-07-21] MEDS ORDERED: LACTATED RINGERS 1,000 ML IV SCH (13:30)
[2017-07-21] MEDS: ATORVASTATIN 80 MG TABLET PO SCH (15:28)
[2017-07-21] MEDS: OLANZapine 2.5 MG TABLET PO SCH (15:29)
[2017-07-21] MEDS: PANTOPRAZOLE 40 MG TABLET PO SCH (15:29)
[2017-07-21] MEDS: traMADol 50 MG TABLET PO PRN (21:42)
[2017-07-22] MEDS: DEXTROSE 5% NACL 0.45% 1,000 ML IV SCH (05:04)
[2017-07-22] MEDS: LEVOTHYROXINE 75 MCG TABLET PO SCH (07:07)
[2017-07-22 07:41] LABS: Basophils % 0.4 % (0.0-0.8); Eosinophils # 0.5 10*3/uL (0.0-0.87); Eosinophils % 5.7 % (0.00-10.9); Hematocrit 30.8 VOL% (35.7-47.0); Immature Granulocytes % 0.5 %; Immature Granulocytes Absolute 0.04 #; Lymphocytes # 1.8 10*3/uL (1.4-4.0); Lymphocytes % 20.8 % (21.3-54.2); Mean Corpuscular HGB Conc 29.2 GM/DL (32-36); Mean Corpuscular Hemoglobin 26 PG (27-34); Mean Corpuscular Volume 90.1 FL (87-102); Mean Platelet Volume 10.8 FL (9.6-12.0); Monocytes # 0.9 10*3/uL (0.11-0.8); Monocytes % 10.9 % (1.7-12.7); Neutrophils # 5.2 10*3/uL (1.4-7.4); Neutrophils % 61.7 % (38.7-73.9); Platelet Count 236 T/CUMM (130-400); Red Blood Count 3.42 MC/CUMM (3.8-5.5); Red Cell Distribution Width 16.4 % (9.3-17.3); White Blood Count 8.4 T/CUMM (4-12)
[2017-07-22] MEDS: INSULIN LISPRO 100 UNIT/ML SUBCUT SCH ×2 (07:57→12:27)
[2017-07-22 08:11] LABS: Calcium 8.3 MG/DL (8.5-10.1); Osmolality,Calculated 285.3 MOS/KG (273-304); Potassium 4.9 MMOL/L (3.5-5.1)
[2017-07-22] MEDS: INSULIN ASPART PROTAMINE/ASPART 70/30 100 UNIT/ML SUBCUT SCH (08:38)
[2017-07-22] MEDS: ATORVASTATIN 80 MG TABLET PO SCH (08:39)
[2017-07-22] MEDS: OLANZapine 2.5 MG TABLET PO SCH (08:39)
[2017-07-22] MEDS: MAGNESIUM OXIDE 400 MG TABLET PO SCH (08:39)
[2017-07-22] MEDS: traMADol 50 MG TABLET PO PRN (08:39)
[2017-07-22] MEDS: FAMOTIDINE 20 MG TABLET PO SCH (08:39)
[2017-07-22] MEDS: ASPIRIN EC 81 MG TABLET PO SCH (08:39)
[2017-07-22] MEDS: METHOCARBAMOL 750 MG TABLET PO SCH ×2 (08:39→15:17)
[2017-07-22] MEDS: DOCUSATE SODIUM 100 MG CAPSULE PO SCH (08:39)
[2017-07-22] MEDS: PANTOPRAZOLE 40 MG TABLET PO SCH (08:40)
[2017-07-22] MEDS ORDERED: DEXTROSE 50% 25 GM/50 ML VIAL IV PRN (10:30)
--- NOTE | 2017-07-22 11:12 | Event Note ---
She is POD #1 and doing well. Very little pain and ambulating with walker. She should do well with discharge to swing bed or home. n
[2017-07-22 11:58] VITALS: BP 145/73
--- NOTE | 2017-07-22 13:16 | Discharge Summary ---
Hospital Course - Hospital Course Hospital Course: 87-year-old female admitted to acute care with back pain. She has history of diabetes, hypertension, hypothyroidism, depression, gastroesophageal reflux disease, hyperlipidemia. Initial impression was that patient probably had a UTI complicating her back pain. Her back pain has been going on for couple of weeks and was quite severe. He was evaluated with x-rays and MRIs and was found to have compression fracture. She underwent kyphoplasty of L1 vertebra. She has done well after the procedure. She is quite weak and debilitated. She lives alone at home. We will discharge her to swing bed today. She will benefit from inpatient therapy. Diagnosis - Discharge Diagnosis (1) Back pain Status: Acute (2) Depression Status: Acute (3) Diabetes Status: Acute (4) Hyperlipidemia Status: Acute (5) Gastroesophageal reflux disease Status: Acute (6) UTI (urinary tract infection) Status: Acute Specialty Discharge - Follow Up or Referrals Discharge Plan - Discharge Data Disposition: Disch/Xfer to Snf Condition at Discharge: Stable Discharge Diet: advance to your usual diet, diabetic diet Activity: as per physical therapy - Discharge Medications New Citalopram [CeleXA] 20 mg PO BEDTIME tablet Methocarbamol Tab [Robaxin Tab] 750 mg PO TID tablet traMADol TAB [Ultram] 50 mg PO Q4H PRN tablet PRN Reason: Pain Mild (1-3) Continue Insulin Aspart Prot/Insuln Asp [NovoLOG Mix 70-30 FlexPen] 40 unit SQ QAM metFORMIN [Glucophage] 1,000 mg PO BID W/MEALS OLANZapine [Olanzapine] 2.5 mg PO DAILY Citalopram [CeleXA] 20 mg PO DAILY Atorvastatin [Lipitor] 80 mg PO DAILY Levothyroxine Tab [Synthroid Tab] 75 mcg PO DAILY@0700 Ranitidine Tab [Zantac Tab] 150 mg PO BID Insulin Aspart Prot/Insuln Asp [NovoLOG Mix 70-30 FlexPen] 24 unit SUBCUT BEDTIME Aspirin [Ecotrin] 81 mg PO DAILY Magnesium Oxide 400 mg PO BID - Follow Up or Referral - Forms/Instructions Instructions: Urinary Tract Infection in Women (DC), Pain Management After Surgery (DC), Kyphoplasty (DC) Exam - Constitutional Vitals: Period Temp Pulse Resp BP Sys/Melton Pulse Ox Last 24 Hr 97.3 F-98.3 F 70-82 14-22 132-197/63-95 91-95 Exam: Examination: GENERAL: NAD. NECK: Neck is supple. CVS: Regular rate and rhythm. RESPIRATORY: Lungs are clear. Abdomen: Soft and nontender. Bowel sounds are present SILO ERECTOR: Patient is awake, alert and oriented to time place and person. Motor strength is 3-4/5 SKIN: Warm and dry. Discharge Results Labs on day of discharge: Labs from last 24 hours 07/22/17 07/22/17 07/22/17 11:34 07:10 06:57 WBC RBC Hgb Hct MCV MCH MCHC RDW Plt Count MPV Neut % (Auto) Lymph % (Auto) [place] % (Auto) Eos % (Auto) Baso % (Auto) Neut # (Auto) Lymph # (Auto) [place] # (Auto) Eos # (Auto) Baso # (Auto) Immature Gran % Nucleated RBC % Immature Gran # Nucleated RBCs # Immature Plt Fraction Sodium 141 Potassium 4.9 Chloride 106 Carbon Dioxide 33 H Anion Gap 6.9 BUN 15 Creatinine 0.90 GFR Calculation 61 BUN/Creatinine Ratio 16.00 Glucose 164 H POC Glucose 151 H 177 H Calculated Osmolality 285.3 Calcium 8.3 L 07/22/17 07/21/17 07/21/17 06:57 19:59 16:04 WBC 8.4 RBC 3.42 L Hgb 9.0 L Hct 30.8 L MCV 90.1 MCH 26 L MCHC 29.2 L RDW 16.4 Plt Count 236 MPV 10.8 Neut % (Auto) 61.7 Lymph % (Auto) 20.8 L [place] % (Auto) 10.9 Eos % (Auto) 5.7 Baso % (Auto) 0.4 Neut # (Auto) 5.2 Lymph # (Auto) 1.8 [place] # (Auto) 0.9 H Eos # (Auto) 0.5 Baso # (Auto) 0.0 Immature Gran % 0.5 Nucleated RBC % 0.0 Immature Gran # 0.04 Nucleated RBCs # 0.00 Immature Plt Fraction 0.0 Sodium Potassium Chloride Carbon Dioxide Anion Gap BUN Creatinine GFR Calculation BUN/Creatinine Ratio Glucose POC Glucose 195 H 217 H Calculated Osmolality Calcium DS: Provider Date of admission: 07/18/17 01:29 Primary care physician: . No PCP Attending physician on admission: Antelmo Headley MD Consults: 07/18/17 02:57 Consult to Case Mgmt/Social Srvs [CONS] Routine Reason for Case Mgmt/Social Srvs: Discharge Planning 07/20/17 09:28 Consult to Occupational Therapy [CONS] Routine Reason for Occupational Therapy: Evaluate and Treat Consult to Physical Therapy [CONS] Routine Reason for Physical Therapy: Evaluate and Treat Consult Comment: Back pain 07/20/17 11:54 Consult to Physician [CONS] Routine Comment: Acute back pain Consulting Provider: Keanu Pino Person Notified: Maritza Date Notified: 07/20/17 Time Notified: 12:05 07/21/17 07:38 Consult to Anesthesiology [CONS] Routine Consulting Provider: Reason for Anesthesiology: Pre-op Clearance 07/22/17 08:45 Consult to Case Mgmt/Social Srvs [CONS] Routine Reason for Case Mgmt/Social Srvs: Swingbed/SNF/Longterm Consult Comment: laijessica? Discharging clinician: Antelmo Headley MD
--- NOTE | 2017-07-22 18:17 | Pathology Report from [facility] ---
[facility] [place] ACCESSION # : [id number] PATIENT NAME : Jamila Saravia ORDERING DR : KARTHIK MERIDA MD CLINICAL HX: Compression fracture L1 POST-OP DX: Same SPECIMEN INFO: L1 vertebral biopsy GROSS DESCRIPTION: The specimen is received in formalin labeled with the patients name and consists of two fragments of bone and tissue together measuring 0.6 x 0.2 cm. Also in the container are fragments of clotted blood measuring 1.2 x 0.7 cm. Submitted in one cassette following decalcification. DIAGNOSIS FOR JAMILA SARAVIA: L1 VERTEBRAL BODY BIOPSY: Fragmented cancellous bone, hypercellular, much blood. No malignancy seen. COLLECTED DATE: 07/21/2017 [facility] REPORT DATE: 07/22/2017 ELECTRONICALLY SIGNED BY: Sylvie Ashley M.D. 07/22/2017 - 13:41:55 [email or web address]
[2017-07-22] MEDS ORDERED: CITALOPRAM 20 MG TABLET PO SCH (21:00)
== END 2017-07-22 15:34 | disposition swing bed (61) | DRG 478 ==
LOC: N.ED 22:07 → N.EDINP 07-18 01:29 → N.5E 07-18 02:18
PROVIDERS: ADMIT Internal Medicine; ATTEND Internal Medicine

== ENCOUNTER 2019-07-05 10:43 | Inpatient (IN) ==
[2019-07-05 11:52] LABS: Basophils % 0.2 % (0.0-0.8); Eosinophils # 0.1 10*3/uL (0.0-0.87); Eosinophils % 1.4 % (0.00-10.9); Hematocrit 34.2 VOL% (35.7-47.0); Immature Granulocytes % 0.5 %; Immature Granulocytes Absolute 0.02 #; Lymphocytes # 0.7 10*3/uL (1.4-4.0); Lymphocytes % 15.6 % (21.3-54.2); Mean Corpuscular HGB Conc 32.2 GM/DL (32-36); Mean Corpuscular Volume 106.9 FL (87-102); Mean Platelet Volume 10.7 FL (9.6-12.0); Monocytes % 1.8 % (1.7-12.7); Neutrophils % 80.5 % (38.7-73.9); Platelet Count 128 T/CUMM (130-400); Red Cell Distribution Width 15.9 % (9.3-17.3); White Blood Count 4.4 T/CUMM (4-12)
[2019-07-05 12:00] LABS: Apearance,Urine CLEAR (Clear); Bilirubin,Urine Negative (Negative); Blood, Urine Negative (Negative); Glucose,Urine (UA) Negative (Negative); Ketones,Urine 5 mg/dL (Negative); Mucus,Urine Occasional /LPF (Occasional); Nitrite,Urine Negative (Negative); Protein,Urine Negative; RBC,Urine 1 /HPF (0-4); Urine Color Yellow (Yellow); Urine Specific Gravity 1.016 (1.001-1.035); Urine Urobilinogen < 2.0 EU/DL (0.2-1.0)
[2019-07-05 12:13] LABS: Albumin 3.4 G/DL (3.4-5.0); Bilirubin,Total 0.7 MG/DL (0.2-1.0); Calcium 8.2 MG/DL (8.5-10.1); Osmolality,Calculated 283.1 MOS/KG (273-304); Total Protein 6.8 G/DL (6.4-8.3)
[2019-07-05] MEDS ORDERED: ACETAMINOPHEN 325 MG TABLET PO PRN (12:20)
[2019-07-05] MEDS ORDERED: KETOROLAC 30 MG/1 ML VIAL IV STA (12:27)
[2019-07-05] MEDS ORDERED: KETOROLAC 30 MG/1 ML VIAL ONE (12:28)
[2019-07-05] MEDS: SODIUM CHLORIDE 0.9% 1,000 ML IV SCH (14:35)
[2019-07-05] MEDS ORDERED: DEXTROSE 50% 25 GM/50 ML VIAL IV PRN (14:56)
[2019-07-05] MEDS ORDERED: GLUCAGON 1 MG VIAL IM PRN (14:56)
[2019-07-05] MEDS ORDERED: guaiFENesin 200 MG/10 ML UDCUP PO PRN (14:56)
[2019-07-05] MEDS ORDERED: ONDANSETRON 4 MG TABLET PO PRN (14:56)
[2019-07-05] MEDS: CARBIDOPA/LEVODOPA 25-100 MG TABLET PO SCH ×2 (17:45→22:54)
[2019-07-05] MEDS: metFORMIN 500 MG TABLET PO SCH (17:45)
[2019-07-05] MEDS: INSULIN LISPRO 100 UNIT/ML SUBCUT SCH (17:46)
[2019-07-05] MEDS: MAGNESIUM OXIDE 400 MG TABLET PO SCH (22:53)
[2019-07-05] MEDS: GABAPENTIN 100 MG CAPSULE PO SCH (22:54)
[2019-07-05] MEDS: FERROUS SULFATE 325 MG TABLET PO SCH (22:54)
[2019-07-05] MEDS: ATORVASTATIN 40 MG TABLET PO SCH (22:54)
[2019-07-05] MEDS: FAMOTIDINE 20 MG TABLET PO SCH (22:55)
[2019-07-05] MEDS: DOCUSATE SODIUM 100 MG CAPSULE PO SCH (22:55)
[2019-07-05] MEDS: IPRATROPIUM 0.06% NASAL SPRAY 15 ML BOTTLE BOTH NARES SCH (23:00)
[2019-07-05] MEDS: ONDANSETRON 4 MG/2 ML VIAL IV PRN (23:46)
[2019-07-06] MEDS: SODIUM CHLORIDE 0.9% 1,000 ML IV SCH ×3 (00:25→20:56)
[2019-07-06] MEDS: CELEXA PO SCH ×2 (00:26→20:52)
[2019-07-06] MEDS: INSULIN LISPRO 100 UNIT/ML SUBCUT SCH ×5 (00:30→21:00)
[2019-07-06 05:31] LABS: Eosinophils # 0.4 10*3/uL (0.0-0.87); Eosinophils % 10.7 % (0.00-10.9); Hematocrit 28.2 VOL% (35.7-47.0); Hemoglobin 8.6 GM/DL (12.0-16.0); Immature Granulocytes % 0.3 %; Immature Granulocytes Absolute 0.01 #; Lymphocytes # 1.7 10*3/uL (1.4-4.0); Lymphocytes % 48.3 % (21.3-54.2); Mean Corpuscular HGB Conc 30.5 GM/DL (32-36); Mean Corpuscular Volume 110.2 FL (87-102); Mean Platelet Volume 11.3 FL (9.6-12.0); Monocytes % 2.5 % (1.7-12.7); Neutrophils % 38.2 % (38.7-73.9); Platelet Count 96 T/CUMM (130-400); Red Blood Count 2.56 MC/CUMM (3.8-5.5); Red Cell Distribution Width 16.4 % (9.3-17.3); White Blood Count 3.5 T/CUMM (4-12)
[2019-07-06] MEDS: LEVOTHYROXINE 75 MCG TABLET PO SCH (05:37)
[2019-07-06 05:55] LABS: Eosinophils 4 % (0-10); Hypochromasia 1+; Lymphocytes 50 % (20-55); Platelet Estimate Decreased; Segmented Neutrophils 42 % (50-85); Total Cells Counted 100
[2019-07-06 05:56] LABS: Atypical Lymphocytes Few
[2019-07-06] MEDS ORDERED: NON-FORMULARY MEDICATION (Omeprazole 40 MG) PO SCH (06:00)
[2019-07-06 06:04] LABS: Albumin 2.6 G/DL (3.4-5.0); Bilirubin,Total 1.1 MG/DL (0.2-1.0); Calcium 7.4 MG/DL (8.5-10.1); Osmolality,Calculated 289.7 MOS/KG (273-304); Total Protein 5.3 G/DL (6.4-8.3)
[2019-07-06] MEDS: IPRATROPIUM 0.06% NASAL SPRAY 15 ML BOTTLE BOTH NARES SCH ×2 (08:38→20:52)
[2019-07-06] MEDS: FLUTICASONE 50 MCG NASAL SPRAY 16 GM BOTTLE BOTH NARES SCH (08:39)
[2019-07-06] MEDS: ASPIRIN EC 81 MG TABLET PO SCH (08:40)
[2019-07-06] MEDS: CHOLECALCIFEROL 1,000 UNIT TABLET PO SCH (08:40)
[2019-07-06] MEDS: metFORMIN 500 MG TABLET PO SCH ×2 (08:40→17:03)
[2019-07-06] MEDS: CARBIDOPA/LEVODOPA 25-100 MG TABLET PO SCH ×3 (08:41→20:52)
[2019-07-06] MEDS: FAMOTIDINE 20 MG TABLET PO SCH ×2 (08:41→20:51)
[2019-07-06] MEDS: MAGNESIUM OXIDE 400 MG TABLET PO SCH ×2 (08:41→20:51)
[2019-07-06] MEDS: predniSONE 5 MG TABLET PO SCH (08:41)
[2019-07-06] MEDS: FERROUS SULFATE 325 MG TABLET PO SCH ×2 (08:41→20:51)
[2019-07-06] MEDS: MULTIVITAMIN (CENTRUM) TABLET PO SCH (08:41)
[2019-07-06] MEDS: PANTOPRAZOLE 40 MG TABLET PO SCH (08:42)
[2019-07-06] MEDS: ASCORBIC ACID 500 MG TABLET PO SCH (08:42)
[2019-07-06] MEDS: POLYETHYLENE GLYCOL POWDER 17 GM PACK PO SCH (08:48)
[2019-07-06] MEDS: DOCUSATE SODIUM 100 MG CAPSULE PO SCH ×2 (08:48→20:51)
[2019-07-06] MEDS: INSULIN ASPART PROTAMINE/ASPART 70/30 100 UNIT/ML SUBCUT SCH (08:50)
[2019-07-06] MEDS: VITAMIN A & D OINT 113 GM TUBE TOP SCH (09:00)
[2019-07-06] MEDS: MICONAZOLE 2% CREAM 57 GM TUBE TOP SCH (09:00)
[2019-07-06] MEDS ORDERED: FOLIC ACID 1 MG TABLET PO SCH (09:00)
[2019-07-06] MEDS ORDERED: LEUCOVORIN TAB 5 MG TABLET PO SCH (10:00)
[2019-07-06] MEDS: FOLIC ACID 1 MG TABLET PO SCH ×2 (15:09→20:51)
[2019-07-06] MEDS: ATORVASTATIN 40 MG TABLET PO SCH (20:51)
[2019-07-06] MEDS: GABAPENTIN 100 MG CAPSULE PO SCH (20:52)
[2019-07-07 04:53] LABS: Basophils % 0.3 % (0.0-0.8); Eosinophils # 0.4 10*3/uL (0.0-0.87); Eosinophils % 11.9 % (0.00-10.9); Hematocrit 28.6 VOL% (35.7-47.0); Hemoglobin 8.7 GM/DL (12.0-16.0); Immature Granulocytes % 0.6 %; Immature Granulocytes Absolute 0.02 #; Lymphocytes # 1.8 10*3/uL (1.4-4.0); Lymphocytes % 50.1 % (21.3-54.2); Mean Corpuscular HGB Conc 30.4 GM/DL (32-36); Mean Corpuscular Volume 111.3 FL (87-102); Mean Platelet Volume 11.3 FL (9.6-12.0); Monocytes % 4.2 % (1.7-12.7); Neutrophils % 32.9 % (38.7-73.9); Platelet Count 76 T/CUMM (130-400); Red Blood Count 2.57 MC/CUMM (3.8-5.5); Red Cell Distribution Width 16.2 % (9.3-17.3); White Blood Count 3.6 T/CUMM (4-12)
[2019-07-07 05:14] LABS: Albumin 2.7 G/DL (3.4-5.0); Calcium 7.4 MG/DL (8.5-10.1); Osmolality,Calculated 291.6 MOS/KG (273-304); Total Protein 5.4 G/DL (6.4-8.3)
[2019-07-07 05:24] LABS: Eosinophils 10 % (0-10); Hypochromasia 1+; Lymphocytes 55 % (20-55); Platelet Estimate Decreased; Segmented Neutrophils 33 % (50-85); Total Cells Counted 100
[2019-07-07 05:25] LABS: Atypical Lymphocytes Few
[2019-07-07] MEDS: LEVOTHYROXINE 75 MCG TABLET PO SCH (05:55)
[2019-07-07] MEDS: INSULIN LISPRO 100 UNIT/ML SUBCUT SCH ×4 (08:07→22:10)
[2019-07-07] MEDS: INSULIN ASPART PROTAMINE/ASPART 70/30 100 UNIT/ML SUBCUT SCH (08:07)
[2019-07-07] MEDS: ASCORBIC ACID 500 MG TABLET PO SCH (08:31)
[2019-07-07] MEDS: metFORMIN 500 MG TABLET PO SCH ×2 (08:31→16:25)
[2019-07-07] MEDS: DOCUSATE SODIUM 100 MG CAPSULE PO SCH ×2 (08:35→20:31)
[2019-07-07] MEDS: FERROUS SULFATE 325 MG TABLET PO SCH ×2 (08:35→20:31)
[2019-07-07] MEDS: PANTOPRAZOLE 40 MG TABLET PO SCH (08:35)
[2019-07-07] MEDS: MULTIVITAMIN (CENTRUM) TABLET PO SCH (08:35)
[2019-07-07] MEDS: ASPIRIN EC 81 MG TABLET PO SCH (08:35)
[2019-07-07] MEDS: FOLIC ACID 1 MG TABLET PO SCH ×2 (08:35→20:32)
[2019-07-07] MEDS: POLYETHYLENE GLYCOL POWDER 17 GM PACK PO SCH (08:36)
[2019-07-07] MEDS: MAGNESIUM OXIDE 400 MG TABLET PO SCH ×2 (08:36→20:30)
[2019-07-07] MEDS: FAMOTIDINE 20 MG TABLET PO SCH ×2 (08:36→20:31)
[2019-07-07] MEDS: CARBIDOPA/LEVODOPA 25-100 MG TABLET PO SCH ×3 (08:37→20:30)
[2019-07-07] MEDS: CHOLECALCIFEROL 1,000 UNIT TABLET PO SCH (08:37)
[2019-07-07] MEDS: predniSONE 5 MG TABLET PO SCH (08:37)
[2019-07-07] MEDS: FLUTICASONE 50 MCG NASAL SPRAY 16 GM BOTTLE BOTH NARES SCH (08:43)
[2019-07-07] MEDS: VITAMIN A & D OINT 113 GM TUBE TOP SCH (08:45)
[2019-07-07] MEDS: MICONAZOLE 2% CREAM 57 GM TUBE TOP SCH (08:45)
[2019-07-07] MEDS: IPRATROPIUM 0.06% NASAL SPRAY 15 ML BOTTLE BOTH NARES SCH ×2 (08:45→20:42)
[2019-07-07] MEDS: ONDANSETRON 4 MG/2 ML VIAL IV PRN (10:44)
[2019-07-07] MEDS: SODIUM CHLORIDE 0.9% 1,000 ML IV SCH ×2 (11:23→20:29)
[2019-07-07] MEDS: GABAPENTIN 100 MG CAPSULE PO SCH (20:31)
[2019-07-07] MEDS: ATORVASTATIN 40 MG TABLET PO SCH (20:31)
[2019-07-07] MEDS: CITALOPRAM 20 MG TABLET PO SCH (20:38)
[2019-07-08 05:14] LABS: Basophils % 0.2 % (0.0-0.8); Eosinophils # 0.4 10*3/uL (0.0-0.87); Eosinophils % 8.3 % (0.00-10.9); Hematocrit 27.9 VOL% (35.7-47.0); Hemoglobin 8.7 GM/DL (12.0-16.0); Immature Granulocytes % 0.4 %; Immature Granulocytes Absolute 0.02 #; Lymphocytes # 1.5 10*3/uL (1.4-4.0); Lymphocytes % 32.3 % (21.3-54.2); Mean Corpuscular HGB Conc 31.2 GM/DL (32-36); Mean Corpuscular Volume 111.2 FL (87-102); Mean Platelet Volume 11.6 FL (9.6-12.0); Monocytes % 3.7 % (1.7-12.7); Neutrophils % 55.1 % (38.7-73.9); Platelet Count 63 T/CUMM (130-400); Red Blood Count 2.51 MC/CUMM (3.8-5.5); Red Cell Distribution Width 16.5 % (9.3-17.3); White Blood Count 4.6 T/CUMM (4-12)
[2019-07-08 05:35] LABS: Eosinophils 7 % (0-10); Lymphocytes 30 % (20-55); Segmented Neutrophils 60 % (50-85); Total Cells Counted 100
[2019-07-08 05:36] LABS: Hypochromasia 1+; Ovalocytes Slight; Platelet Estimate Decreased
[2019-07-08 05:42] LABS: Albumin 2.7 G/DL (3.4-5.0); Bilirubin,Total 0.8 MG/DL (0.2-1.0); Calcium 7.5 MG/DL (8.5-10.1); Osmolality,Calculated 287.7 MOS/KG (273-304); Total Protein 5.4 G/DL (6.4-8.3)
[2019-07-08] MEDS: LEVOTHYROXINE 75 MCG TABLET PO SCH (06:02)
[2019-07-08] MEDS: SODIUM CHLORIDE 0.9% 1,000 ML IV SCH (06:03)
[2019-07-08] MEDS: ACETAMINOPHEN 500 MG TABLET PO PRN (07:23)
[2019-07-08] MEDS: INSULIN LISPRO 100 UNIT/ML SUBCUT SCH ×4 (07:32→21:18)
[2019-07-08] MEDS ORDERED: SODIUM CHLORIDE 0.9% 1,000 ML IV SCH (08:30)
[2019-07-08] MEDS: ONDANSETRON 4 MG/2 ML VIAL IV PRN (09:35)
[2019-07-08] MEDS: MULTIVITAMIN (CENTRUM) TABLET PO SCH (10:15)
[2019-07-08] MEDS: ASPIRIN EC 81 MG TABLET PO SCH (10:15)
[2019-07-08] MEDS: DOCUSATE SODIUM 100 MG CAPSULE PO SCH ×2 (10:15→21:18)
[2019-07-08] MEDS: FAMOTIDINE 20 MG TABLET PO SCH ×2 (10:15→21:14)
[2019-07-08] MEDS: metFORMIN 500 MG TABLET PO SCH ×2 (10:15→17:16)
[2019-07-08] MEDS: FERROUS SULFATE 325 MG TABLET PO SCH ×2 (10:16→21:16)
[2019-07-08] MEDS: CARBIDOPA/LEVODOPA 25-100 MG TABLET PO SCH ×3 (10:16→21:17)
[2019-07-08] MEDS: LORATADINE 10 MG TABLET PO SCH (10:16)
[2019-07-08] MEDS: PANTOPRAZOLE 40 MG TABLET PO SCH (10:16)
[2019-07-08] MEDS: predniSONE 5 MG TABLET PO SCH (10:16)
[2019-07-08] MEDS: ASCORBIC ACID 500 MG TABLET PO SCH (10:16)
[2019-07-08] MEDS: MAGNESIUM OXIDE 400 MG TABLET PO SCH ×2 (10:16→21:16)
[2019-07-08] MEDS: IPRATROPIUM 0.06% NASAL SPRAY 15 ML BOTTLE BOTH NARES SCH ×2 (10:17→21:13)
[2019-07-08] MEDS: FLUTICASONE 50 MCG NASAL SPRAY 16 GM BOTTLE BOTH NARES SCH (10:17)
[2019-07-08] MEDS: INSULIN ASPART PROTAMINE/ASPART 70/30 100 UNIT/ML SUBCUT SCH (10:17)
[2019-07-08] MEDS: MICONAZOLE 2% CREAM 57 GM TUBE TOP SCH (10:17)
[2019-07-08] MEDS: CHOLECALCIFEROL 1,000 UNIT TABLET PO SCH (10:17)
[2019-07-08] MEDS: FOLIC ACID 1 MG TABLET PO SCH (10:18)
[2019-07-08] MEDS: POLYETHYLENE GLYCOL POWDER 17 GM PACK PO SCH (10:19)
[2019-07-08] MEDS: VITAMIN A & D OINT 113 GM TUBE TOP SCH (10:19)
[2019-07-08] MEDS: LEUCOVORIN IV SCH ×2 (15:26→21:11)
[2019-07-08] MEDS: DEXTROSE 5% IV SCH ×2 (15:26→21:11)
[2019-07-08] MEDS: CITALOPRAM 20 MG TABLET PO SCH (21:14)
[2019-07-08] MEDS: GABAPENTIN 100 MG CAPSULE PO SCH (21:16)
[2019-07-08] MEDS: ATORVASTATIN 40 MG TABLET PO SCH (21:17)
[2019-07-09] MEDS: LEUCOVORIN IV SCH ×4 (03:51→20:41)
[2019-07-09] MEDS: DEXTROSE 5% IV SCH ×4 (03:51→20:41)
[2019-07-09] MEDS: LEVOTHYROXINE 75 MCG TABLET PO SCH (06:34)
[2019-07-09] MEDS: INSULIN ASPART PROTAMINE/ASPART 70/30 100 UNIT/ML SUBCUT SCH (08:32)
[2019-07-09] MEDS: FLUTICASONE 50 MCG NASAL SPRAY 16 GM BOTTLE BOTH NARES SCH (08:32)
[2019-07-09] MEDS: metFORMIN 500 MG TABLET PO SCH ×2 (08:33→16:15)
[2019-07-09] MEDS: ASCORBIC ACID 500 MG TABLET PO SCH (08:33)
[2019-07-09] MEDS: IPRATROPIUM 0.06% NASAL SPRAY 15 ML BOTTLE BOTH NARES SCH ×2 (08:33→20:42)
[2019-07-09] MEDS: ASPIRIN EC 81 MG TABLET PO SCH (08:33)
[2019-07-09] MEDS: MULTIVITAMIN (CENTRUM) TABLET PO SCH (08:33)
[2019-07-09] MEDS: PANTOPRAZOLE 40 MG TABLET PO SCH (08:34)
[2019-07-09] MEDS: MAGNESIUM OXIDE 400 MG TABLET PO SCH ×2 (08:34→20:44)
[2019-07-09] MEDS: LORATADINE 10 MG TABLET PO SCH (08:34)
[2019-07-09] MEDS: FERROUS SULFATE 325 MG TABLET PO SCH ×2 (08:34→20:45)
[2019-07-09] MEDS: predniSONE 5 MG TABLET PO SCH (08:34)
[2019-07-09] MEDS: CHOLECALCIFEROL 1,000 UNIT TABLET PO SCH (08:34)
[2019-07-09] MEDS: CARBIDOPA/LEVODOPA 25-100 MG TABLET PO SCH ×3 (08:34→20:45)
[2019-07-09] MEDS: DOCUSATE SODIUM 100 MG CAPSULE PO SCH ×2 (08:34→20:47)
[2019-07-09] MEDS: FAMOTIDINE 20 MG TABLET PO SCH ×2 (08:40→20:44)
[2019-07-09] MEDS: ACETAMINOPHEN 325 MG TABLET PO PRN (08:49)
[2019-07-09] MEDS ORDERED: FOSAMAX PO SCH (09:00)
[2019-07-09] MEDS: INSULIN LISPRO 100 UNIT/ML SUBCUT SCH ×4 (10:05→20:45)
[2019-07-09] MEDS: VITAMIN A & D OINT 113 GM TUBE TOP SCH (10:06)
[2019-07-09] MEDS: MICONAZOLE 2% CREAM 57 GM TUBE TOP SCH (10:06)
[2019-07-09] MEDS: POLYETHYLENE GLYCOL POWDER 17 GM PACK PO SCH (10:06)
[2019-07-09 12:27] LABS: Basophils % 0.2 % (0.0-0.8); Eosinophils # 0.4 10*3/uL (0.0-0.87); Eosinophils % 3.9 % (0.00-10.9); Hematocrit 32.5 VOL% (35.7-47.0); Immature Granulocytes % 0.4 %; Immature Granulocytes Absolute 0.04 #; Lymphocytes # 4.5 10*3/uL (1.4-4.0); Lymphocytes % 48.6 % (21.3-54.2); Mean Corpuscular HGB Conc 30.8 GM/DL (32-36); Mean Corpuscular Volume 110.2 FL (87-102); Mean Platelet Volume 11.5 FL (9.6-12.0); Monocytes % 4.4 % (1.7-12.7); Neutrophils % 42.5 % (38.7-73.9); Platelet Count 104 T/CUMM (130-400); Red Blood Count 2.95 MC/CUMM (3.8-5.5); Red Cell Distribution Width 17.2 % (9.3-17.3); White Blood Count 9.2 T/CUMM (4-12)
[2019-07-09 13:12] LABS: Hypochromasia 1+; Ovalocytes Slight
[2019-07-09] MEDS: CITALOPRAM 20 MG TABLET PO SCH (20:42)
[2019-07-09] MEDS: GABAPENTIN 100 MG CAPSULE PO SCH (20:44)
[2019-07-09] MEDS: ATORVASTATIN 40 MG TABLET PO SCH (20:45)
[2019-07-10] MEDS: LEUCOVORIN IV SCH ×4 (03:20→22:10)
[2019-07-10] MEDS: DEXTROSE 5% IV SCH ×4 (03:20→22:10)
[2019-07-10] MEDS: LEVOTHYROXINE 75 MCG TABLET PO SCH (05:50)
[2019-07-10 05:52] LABS: Basophils % 0.2 % (0.0-0.8); Eosinophils # 0.6 10*3/uL (0.0-0.87); Eosinophils % 12.7 % (0.00-10.9); Hematocrit 29.6 VOL% (35.7-47.0); Immature Granulocytes % 0.4 %; Immature Granulocytes Absolute 0.02 #; Lymphocytes # 1.6 10*3/uL (1.4-4.0); Lymphocytes % 35.9 % (21.3-54.2); Mean Corpuscular HGB Conc 30.4 GM/DL (32-36); Mean Corpuscular Volume 109.2 FL (87-102); Mean Platelet Volume 11.4 FL (9.6-12.0); Monocytes % 5.7 % (1.7-12.7); Neutrophils % 45.1 % (38.7-73.9); Platelet Count 111 T/CUMM (130-400); Red Blood Count 2.71 MC/CUMM (3.8-5.5); Red Cell Distribution Width 17.2 % (9.3-17.3); White Blood Count 4.6 T/CUMM (4-12)
[2019-07-10 06:16] LABS: Eosinophils 16 % (0-10); Hypochromasia 1+; Lymphocytes 38 % (20-55); Platelet Estimate Decreased; Segmented Neutrophils 41 % (50-85); Total Cells Counted 100
[2019-07-10 06:17] LABS: Atypical Lymphocytes Few
[2019-07-10] MEDS: DOCUSATE SODIUM 100 MG CAPSULE PO SCH ×2 (10:03→22:15)
[2019-07-10] MEDS: INSULIN ASPART PROTAMINE/ASPART 70/30 100 UNIT/ML SUBCUT SCH (10:03)
[2019-07-10] MEDS: ASPIRIN EC 81 MG TABLET PO SCH (10:04)
[2019-07-10] MEDS: PANTOPRAZOLE 40 MG TABLET PO SCH (10:04)
[2019-07-10] MEDS: ACETAMINOPHEN 325 MG TABLET PO PRN (10:04)
[2019-07-10] MEDS: MULTIVITAMIN (CENTRUM) TABLET PO SCH (10:04)
[2019-07-10] MEDS: MAGNESIUM OXIDE 400 MG TABLET PO SCH ×2 (10:05→22:13)
[2019-07-10] MEDS: FERROUS SULFATE 325 MG TABLET PO SCH ×2 (10:05→22:14)
[2019-07-10] MEDS: metFORMIN 500 MG TABLET PO SCH ×2 (10:05→16:56)
[2019-07-10] MEDS: CHOLECALCIFEROL 1,000 UNIT TABLET PO SCH (10:05)
[2019-07-10] MEDS: predniSONE 5 MG TABLET PO SCH (10:05)
[2019-07-10] MEDS: FAMOTIDINE 20 MG TABLET PO SCH ×2 (10:05→22:15)
[2019-07-10] MEDS: ASCORBIC ACID 500 MG TABLET PO SCH (10:05)
[2019-07-10] MEDS: LORATADINE 10 MG TABLET PO SCH (10:05)
[2019-07-10] MEDS: FLUTICASONE 50 MCG NASAL SPRAY 16 GM BOTTLE BOTH NARES SCH (10:06)
[2019-07-10] MEDS: CARBIDOPA/LEVODOPA 25-100 MG TABLET PO SCH ×3 (10:06→22:16)
[2019-07-10] MEDS: IPRATROPIUM 0.06% NASAL SPRAY 15 ML BOTTLE BOTH NARES SCH ×2 (10:06→22:13)
[2019-07-10] MEDS: VITAMIN A & D OINT 113 GM TUBE TOP SCH (10:06)
[2019-07-10] MEDS: POLYETHYLENE GLYCOL POWDER 17 GM PACK PO SCH ×2 (10:06→15:08)
[2019-07-10] MEDS: MICONAZOLE 2% CREAM 57 GM TUBE TOP SCH (10:06)
[2019-07-10] MEDS: INSULIN LISPRO 100 UNIT/ML SUBCUT SCH ×4 (10:06→22:17)
[2019-07-10] MEDS ORDERED: hydrALAZINE 20 MG/1 ML VIAL IV PRN (11:40)
[2019-07-10] MEDS: ONDANSETRON 4 MG/2 ML VIAL IV PRN (11:49)
[2019-07-10] MEDS: amLODIPine 5 MG TABLET PO SCH (11:49)
[2019-07-10 12:36] LABS: Calcium 8.8 MG/DL (8.5-10.1); Osmolality,Calculated 286.8 MOS/KG (273-304)
[2019-07-10] MEDS: CITALOPRAM 20 MG TABLET PO SCH (22:13)
[2019-07-10] MEDS: ATORVASTATIN 40 MG TABLET PO SCH (22:15)
[2019-07-10] MEDS: GABAPENTIN 100 MG CAPSULE PO SCH (22:15)
[2019-07-10] MEDS: ACETAMINOPHEN 500 MG TABLET PO PRN (23:26)
[2019-07-11] MEDS: LEUCOVORIN IV SCH ×2 (03:05→08:57)
[2019-07-11] MEDS: DEXTROSE 5% IV SCH ×2 (03:05→08:57)
[2019-07-11 06:23] LABS: Basophils % 0.4 % (0.0-0.8); Eosinophils # 0.9 10*3/uL (0.0-0.87); Eosinophils % 19.3 % (0.00-10.9); Hematocrit 30.9 VOL% (35.7-47.0); Hemoglobin 9.7 GM/DL (12.0-16.0); Immature Granulocytes % 0.4 %; Immature Granulocytes Absolute 0.02 #; Lymphocytes # 1.7 10*3/uL (1.4-4.0); Lymphocytes % 37.3 % (21.3-54.2); Mean Corpuscular HGB Conc 31.4 GM/DL (32-36); Mean Corpuscular Volume 108.8 FL (87-102); Mean Platelet Volume 10.9 FL (9.6-12.0); Monocytes % 11.1 % (1.7-12.7); Neutrophils % 31.5 % (38.7-73.9); Platelet Count 164 T/CUMM (130-400); Red Blood Count 2.84 MC/CUMM (3.8-5.5); Red Cell Distribution Width 17.5 % (9.3-17.3); White Blood Count 4.6 T/CUMM (4-12)
[2019-07-11 06:46] LABS: Eosinophils 23 % (0-10); Hypochromasia 1+; Lymphocytes 36 % (20-55); Ovalocytes Slight; Platelet Estimate Adequate; Segmented Neutrophils 31 % (50-85); Total Cells Counted 100
[2019-07-11 06:47] LABS: Atypical Lymphocytes Few
[2019-07-11] MEDS: LEVOTHYROXINE 75 MCG TABLET PO SCH (07:19)
[2019-07-11] MEDS: LORATADINE 10 MG TABLET PO SCH (08:55)
[2019-07-11] MEDS: MAGNESIUM OXIDE 400 MG TABLET PO SCH (08:55)
[2019-07-11] MEDS: ASPIRIN EC 81 MG TABLET PO SCH (08:55)
[2019-07-11] MEDS: FERROUS SULFATE 325 MG TABLET PO SCH (08:55)
[2019-07-11] MEDS: ASCORBIC ACID 500 MG TABLET PO SCH (08:56)
[2019-07-11] MEDS: amLODIPine 5 MG TABLET PO SCH (08:56)
[2019-07-11] MEDS: CARBIDOPA/LEVODOPA 25-100 MG TABLET PO SCH (08:56)
[2019-07-11] MEDS: PANTOPRAZOLE 40 MG TABLET PO SCH (08:56)
[2019-07-11] MEDS: FAMOTIDINE 20 MG TABLET PO SCH (08:56)
[2019-07-11] MEDS: MULTIVITAMIN (CENTRUM) TABLET PO SCH (08:56)
[2019-07-11] MEDS: DOCUSATE SODIUM 100 MG CAPSULE PO SCH (08:56)
[2019-07-11] MEDS: IPRATROPIUM 0.06% NASAL SPRAY 15 ML BOTTLE BOTH NARES SCH (08:57)
[2019-07-11] MEDS: FLUTICASONE 50 MCG NASAL SPRAY 16 GM BOTTLE BOTH NARES SCH (08:57)
[2019-07-11] MEDS: MICONAZOLE 2% CREAM 57 GM TUBE TOP SCH (08:57)
[2019-07-11] MEDS: CHOLECALCIFEROL 1,000 UNIT TABLET PO SCH (08:57)
[2019-07-11] MEDS ORDERED: amLODIPine 5 MG TABLET PO SCH (09:00)
[2019-07-11] MEDS: metFORMIN 500 MG TABLET PO SCH (09:20)
[2019-07-11] MEDS: INSULIN LISPRO 100 UNIT/ML SUBCUT SCH ×2 (09:20→12:05)
[2019-07-11] MEDS: INSULIN ASPART PROTAMINE/ASPART 70/30 100 UNIT/ML SUBCUT SCH (09:20)
[2019-07-11] MEDS: VITAMIN A & D OINT 113 GM TUBE TOP SCH (09:23)
[2019-07-11] MEDS: predniSONE 5 MG TABLET PO SCH (09:23)
[2019-07-11] MEDS: POLYETHYLENE GLYCOL POWDER 17 GM PACK PO SCH (09:23)
[2019-07-11 11:50] VITALS: BP 164/76
== END 2019-07-11 12:21 | DRG 103 ==
LOC: EDUNIT# → EDBD → N.ED 10:43 → N.EDINP 10:43 → N.2E 14:56
PROVIDERS: ADMIT Internal Medicine; ATTEND Internal Medicine

== ENCOUNTER 2020-06-12 14:22 | Inpatient (IN) ==
[2020-06-12] MEDS ORDERED: FUROSEMIDE 100 MG/10 ML VIAL IV STA (14:40)
[2020-06-12 15:15] LABS: Apearance,Urine CLEAR (Clear); Bilirubin,Urine Negative (Negative); Blood, Urine Negative (Negative); Glucose,Urine (UA) Negative (Negative); Ketones,Urine Negative (Negative); Mucus,Urine Occasional /LPF (Occasional); Nitrite,Urine Negative (Negative); Protein,Urine Negative; RBC,Urine 1 /HPF (0-4); Urine Color Straw (Yellow); Urine Specific Gravity 1.006 (1.001-1.035); Urine Urobilinogen < 2.0 EU/DL (0.2-1.0); WBC,Urine <1 /HPF (0-6)
[2020-06-12 15:22] LABS: Albumin 3.3 G/DL (3.4-5.0); Bilirubin,Total 0.4 MG/DL (0.2-1.0); Osmolality,Calculated 286.1 MOS/KG (273-304)
[2020-06-12] MEDS ORDERED: ONDANSETRON 4 MG/2 ML VIAL ONE (15:44)
[2020-06-12 16:14] LABS: Basophils % 0.3 % (0.0-0.8); Eosinophils # 0.1 10*3/uL (0.0-0.87); Eosinophils % 0.8 % (0.00-10.9); Hematocrit 35.9 VOL% (35.7-47.0); Hemoglobin 11.5 GM/DL (12.0-16.0); Immature Granulocytes % 0.6 %; Immature Granulocytes Absolute 0.05 #; Lymphocytes # 2.2 10*3/uL (1.4-4.0); Lymphocytes % 24.5 % (21.3-54.2); Mean Corpuscular Volume 100.8 FL (87-102); Mean Platelet Volume 10.5 FL (9.6-12.0); Monocytes % 5.7 % (1.7-12.7); Neutrophils % 68.1 % (38.7-73.9); Platelet Count 191 T/CUMM (130-400); Red Blood Count 3.56 MC/CUMM (3.8-5.5); Red Cell Distribution Width 14.3 % (9.3-17.3); White Blood Count 9.1 T/CUMM (4-12)
[2020-06-12 16:30] LABS: PT Patient Result 10.3 SECS (9.8-11.9); Partial Thromboplastin Time 21.9 SECS (23.9-33.8)
[2020-06-12 20:00] LABS: Troponin I < 0.015 NG/ML (0.00-0.045)
[2020-06-12] MEDS: ACETAMINOPHEN 325 MG TABLET PO PRN (20:11)
[2020-06-12] MEDS: ONDANSETRON 4 MG/2 ML VIAL IV PRN (21:00)
[2020-06-12] MEDS ORDERED: GLUCAGON 1 MG VIAL IM PRN (21:07)
[2020-06-12] MEDS ORDERED: DEXTROSE 50% 25 GM/50 ML VIAL IV PRN (21:07)
[2020-06-12] MEDS: MELATONIN 3 MG TABLET PO SCH (21:52)
[2020-06-12] MEDS: CARBIDOPA/LEVODOPA 25-100 MG TABLET PO SCH (21:53)
[2020-06-12] MEDS: MAGNESIUM OXIDE 400 MG TABLET PO SCH (21:53)
[2020-06-12] MEDS: GABAPENTIN 100 MG CAPSULE PO SCH (21:54)
[2020-06-12] MEDS: DOCUSATE SODIUM 100 MG CAPSULE PO SCH (21:54)
[2020-06-12] MEDS: ATORVASTATIN 40 MG TABLET PO SCH (21:54)
[2020-06-12] MEDS: CITALOPRAM 20 MG TABLET PO SCH (21:55)
[2020-06-12] MEDS: INSULIN REGULAR 100 UNIT/ML SUBCUT SCH (22:32)
[2020-06-13 04:54] LABS: Basophils % 0.4 % (0.0-0.8); Eosinophils # 0.2 10*3/uL (0.0-0.87); Eosinophils % 2.6 % (0.00-10.9); Hematocrit 34.6 VOL% (35.7-47.0); Hemoglobin 10.7 GM/DL (12.0-16.0); Immature Granulocytes % 0.5 %; Immature Granulocytes Absolute 0.04 #; Lymphocytes # 3.1 10*3/uL (1.4-4.0); Lymphocytes % 40.5 % (21.3-54.2); Mean Corpuscular HGB Conc 30.9 GM/DL (32-36); Mean Corpuscular Volume 102.1 FL (87-102); Mean Platelet Volume 10.6 FL (9.6-12.0); Monocytes % 10.2 % (1.7-12.7); Neutrophils % 45.8 % (38.7-73.9); Platelet Count 204 T/CUMM (130-400); Red Blood Count 3.39 MC/CUMM (3.8-5.5); Red Cell Distribution Width 14.6 % (9.3-17.3); White Blood Count 7.6 T/CUMM (4-12)
[2020-06-13 05:33] LABS: Risk Ratio 2.02; VLDL CHOLESTEROL 22.2 MG/DL
[2020-06-13 05:40] LABS: Calcium 8.4 MG/DL (8.5-10.1); Osmolality,Calculated 292.8 MOS/KG (273-304)
[2020-06-13] MEDS: LEVOTHYROXINE 75 MCG TABLET PO SCH (06:41)
[2020-06-13] MEDS: INSULIN REGULAR 100 UNIT/ML SUBCUT SCH ×4 (08:18→21:11)
[2020-06-13] MEDS: SODIUM CHLORIDE 0.9% 1,000 ML IV SCH (08:38)
[2020-06-13] MEDS ORDERED: NON-FORMULARY MEDICATION (Glucagon Hcl [Glucagon (Hcl) Emergency Kit] 1 MG) SUBCUT PRN (08:51)
[2020-06-13] MEDS ORDERED: MECLIZINE 25 MG TABLET PO PRN (08:51)
[2020-06-13] MEDS ORDERED: ALBUTEROL/IPRATROPIUM 3 ML NEB RESP TX PRN (08:51)
[2020-06-13] MEDS ORDERED: NON-FORMULARY MEDICATION (Acetaminophen [Tylenol] 650 MG) PO PRN (08:51)
[2020-06-13] MEDS ORDERED: PANTOPRAZOLE 40 MG TABLET PO SCH (09:00)
[2020-06-13] MEDS ORDERED: POLYVINYL ALCOHOL 1.4% OPH SOLN 15 ML BOTTLE BOTH EYES PRN (09:00)
[2020-06-13] MEDS ORDERED: amLODIPine 5 MG TABLET PO SCH (09:00)
[2020-06-13] MEDS: FERROUS SULFATE 325 MG TABLET PO SCH (09:45)
[2020-06-13] MEDS: MAGNESIUM OXIDE 400 MG TABLET PO SCH ×2 (09:45→21:14)
[2020-06-13] MEDS: DOCUSATE SODIUM 100 MG CAPSULE PO SCH ×2 (09:45→21:14)
[2020-06-13] MEDS: MULTIVITAMIN (CENTRUM) TABLET PO SCH (09:45)
[2020-06-13] MEDS: FOLIC ACID 1 MG TABLET PO SCH (09:45)
[2020-06-13] MEDS: CALCIUM (CARBONATE) 500 MG TABLET PO SCH ×2 (09:46→21:15)
[2020-06-13] MEDS: CARBIDOPA/LEVODOPA 25-100 MG TABLET PO SCH ×3 (09:46→21:13)
[2020-06-13] MEDS: amLODIPine 10 MG TABLET PO SCH (10:28)
[2020-06-13] MEDS: POLYETHYLENE GLYCOL POWDER 17 GM PACK PO SCH (10:41)
[2020-06-13] MEDS: VITAMIN A & D OINT 113 GM TUBE TOP SCH (10:42)
[2020-06-13] MEDS: CHOLECALCIFEROL 1,000 UNIT TABLET PO SCH (10:42)
[2020-06-13] MEDS: ASCORBIC ACID 500 MG TABLET PO SCH (10:42)
[2020-06-13] MEDS ORDERED: REGADENOSON 0.4 MG/5 ML SYRINGE IV ONE (12:34)
[2020-06-13] MEDS: ONDANSETRON 4 MG/2 ML VIAL IV PRN (14:56)
[2020-06-13] MEDS: ASPIRIN CHEW 81 MG TABLET PO SCH (14:57)
[2020-06-13] MEDS: predniSONE 5 MG TABLET PO SCH (14:57)
[2020-06-13] MEDS: ACETAMINOPHEN 325 MG TABLET PO PRN ×2 (14:57→23:40)
[2020-06-13] MEDS: FUROSEMIDE 20 MG TABLET PO SCH (14:57)
[2020-06-13] MEDS: FLUTICASONE 50 MCG NASAL SPRAY 16 GM BOTTLE BOTH NARES SCH (14:58)
[2020-06-13] MEDS: IPRATROPIUM 0.06% NASAL SPRAY 15 ML BOTTLE BOTH NARES SCH ×2 (14:58→21:11)
[2020-06-13] MEDS: ALBUTEROL 2.5 MG/3 ML NEB RESP TX SCH ×2 (15:53→19:38)
[2020-06-13] MEDS: INSULIN ASPART PROTAMINE/ASPART 70/30 100 UNIT/ML SUBCUT SCH (16:54)
[2020-06-13] MEDS: metFORMIN 500 MG TABLET PO SCH (16:54)
[2020-06-13] MEDS ORDERED: NON-FORMULARY MEDICATION (Melatonin 5 MG) PO SCH (21:00)
[2020-06-13] MEDS ORDERED: CITALOPRAM 10 MG PO SCH (21:00)
[2020-06-13] MEDS: CITALOPRAM 20 MG TABLET PO SCH (21:13)
[2020-06-13] MEDS: GABAPENTIN 100 MG CAPSULE PO SCH (21:13)
[2020-06-13] MEDS: MELATONIN 3 MG TABLET PO SCH (21:15)
[2020-06-13] MEDS: ATORVASTATIN 40 MG TABLET PO SCH (21:15)
[2020-06-13] MEDS: hydrALAZINE 20 MG/1 ML VIAL IV PRN (23:50)
[2020-06-14] MEDS: ALBUTEROL 2.5 MG/3 ML NEB RESP TX SCH ×4 (00:31→19:13)
[2020-06-14] MEDS: PANTOPRAZOLE 40 MG TABLET PO SCH (05:29)
[2020-06-14] MEDS: LEVOTHYROXINE 75 MCG TABLET PO SCH (05:29)
[2020-06-14] MEDS: INSULIN REGULAR 100 UNIT/ML SUBCUT SCH ×4 (07:46→21:04)
[2020-06-14 07:58] LABS: Basophils % 0.2 % (0.0-0.8); Eosinophils # 0.1 10*3/uL (0.0-0.87); Eosinophils % 0.9 % (0.00-10.9); Hemoglobin 10.8 GM/DL (12.0-16.0); Immature Granulocytes % 0.4 %; Immature Granulocytes Absolute 0.04 #; Lymphocytes # 3.6 10*3/uL (1.4-4.0); Lymphocytes % 39.3 % (21.3-54.2); Mean Corpuscular HGB Conc 30.9 GM/DL (32-36); Mean Corpuscular Volume 100.6 FL (87-102); Mean Platelet Volume 10.4 FL (9.6-12.0); Monocytes % 7.9 % (1.7-12.7); Neutrophils % 51.3 % (38.7-73.9); Platelet Count 195 T/CUMM (130-400); Red Blood Count 3.48 MC/CUMM (3.8-5.5); Red Cell Distribution Width 14.6 % (9.3-17.3)
[2020-06-14] MEDS ORDERED: FUROSEMIDE 40 MG/4 ML VIAL IV ONE (08:05)
[2020-06-14 08:18] LABS: Calcium 8.9 MG/DL (8.5-10.1)
[2020-06-14] MEDS: MAGNESIUM OXIDE 400 MG TABLET PO SCH ×2 (08:55→21:04)
[2020-06-14] MEDS: FOLIC ACID 1 MG TABLET PO SCH (08:55)
[2020-06-14] MEDS: amLODIPine 10 MG TABLET PO SCH (08:55)
[2020-06-14] MEDS: POLYETHYLENE GLYCOL POWDER 17 GM PACK PO SCH (08:55)
[2020-06-14] MEDS: CALCIUM (CARBONATE) 500 MG TABLET PO SCH ×2 (08:55→21:03)
[2020-06-14] MEDS: CHOLECALCIFEROL 1,000 UNIT TABLET PO SCH (08:58)
[2020-06-14] MEDS: hydrALAZINE 25 MG TABLET PO SCH ×3 (08:58→21:03)
[2020-06-14] MEDS: FUROSEMIDE 20 MG TABLET PO SCH (08:58)
[2020-06-14] MEDS: metFORMIN 500 MG TABLET PO SCH ×2 (08:58→16:27)
[2020-06-14] MEDS: CARBIDOPA/LEVODOPA 25-100 MG TABLET PO SCH ×3 (09:00→21:04)
[2020-06-14] MEDS: FERROUS SULFATE 325 MG TABLET PO SCH (09:00)
[2020-06-14] MEDS: predniSONE 5 MG TABLET PO SCH (09:00)
[2020-06-14] MEDS: MULTIVITAMIN (CENTRUM) TABLET PO SCH (09:01)
[2020-06-14] MEDS: DOCUSATE SODIUM 100 MG CAPSULE PO SCH ×2 (09:02→21:04)
[2020-06-14] MEDS: ASCORBIC ACID 500 MG TABLET PO SCH (09:02)
[2020-06-14] MEDS: ASPIRIN CHEW 81 MG TABLET PO SCH (09:02)
[2020-06-14] MEDS: FLUTICASONE 50 MCG NASAL SPRAY 16 GM BOTTLE BOTH NARES SCH (09:14)
[2020-06-14] MEDS: VITAMIN A & D OINT 113 GM TUBE TOP SCH (09:14)
[2020-06-14] MEDS: IPRATROPIUM 0.06% NASAL SPRAY 15 ML BOTTLE BOTH NARES SCH ×2 (09:14→21:03)
[2020-06-14] MEDS: INSULIN ASPART PROTAMINE/ASPART 70/30 100 UNIT/ML SUBCUT SCH ×2 (09:14→17:21)
[2020-06-14] MEDS: ACETAMINOPHEN 325 MG TABLET PO PRN (12:03)
[2020-06-14] MEDS: CITALOPRAM 20 MG TABLET PO SCH (21:03)
[2020-06-14] MEDS: ATORVASTATIN 40 MG TABLET PO SCH (21:04)
[2020-06-14] MEDS: MELATONIN 3 MG TABLET PO SCH (21:04)
[2020-06-14] MEDS: GABAPENTIN 100 MG CAPSULE PO SCH (21:04)
[2020-06-15] MEDS: ALBUTEROL 2.5 MG/3 ML NEB RESP TX SCH ×4 (00:43→19:25)
[2020-06-15] MEDS: hydrALAZINE 20 MG/1 ML VIAL IV PRN (05:29)
[2020-06-15] MEDS: PANTOPRAZOLE 40 MG TABLET PO SCH (05:43)
[2020-06-15] MEDS: LEVOTHYROXINE 75 MCG TABLET PO SCH (05:43)
[2020-06-15 06:19] LABS: Basophils % 0.4 % (0.0-0.8); Eosinophils # 0.2 10*3/uL (0.0-0.87); Eosinophils % 2.2 % (0.00-10.9); Hematocrit 34.3 VOL% (35.7-47.0); Hemoglobin 10.5 GM/DL (12.0-16.0); Immature Granulocytes % 0.4 %; Immature Granulocytes Absolute 0.03 #; Lymphocytes # 2.5 10*3/uL (1.4-4.0); Lymphocytes % 32.3 % (21.3-54.2); Mean Corpuscular HGB Conc 30.6 GM/DL (32-36); Mean Corpuscular Volume 102.7 FL (87-102); Mean Platelet Volume 10.7 FL (9.6-12.0); Monocytes % 7.7 % (1.7-12.7); Platelet Count 203 T/CUMM (130-400); Red Blood Count 3.34 MC/CUMM (3.8-5.5); Red Cell Distribution Width 14.8 % (9.3-17.3); White Blood Count 7.8 T/CUMM (4-12)
[2020-06-15 06:59] LABS: Calcium 9.1 MG/DL (8.5-10.1); Osmolality,Calculated 298.8 MOS/KG (273-304)
[2020-06-15] MEDS: POLYETHYLENE GLYCOL POWDER 17 GM PACK PO SCH (08:57)
[2020-06-15] MEDS: metFORMIN 500 MG TABLET PO SCH ×2 (08:57→17:05)
[2020-06-15] MEDS: CHOLECALCIFEROL 1,000 UNIT TABLET PO SCH (08:57)
[2020-06-15] MEDS: MULTIVITAMIN (CENTRUM) TABLET PO SCH (08:57)
[2020-06-15] MEDS: MAGNESIUM OXIDE 400 MG TABLET PO SCH ×2 (08:57→21:13)
[2020-06-15] MEDS: ASCORBIC ACID 500 MG TABLET PO SCH (08:57)
[2020-06-15] MEDS: DOCUSATE SODIUM 100 MG CAPSULE PO SCH ×2 (08:57→21:13)
[2020-06-15] MEDS: predniSONE 5 MG TABLET PO SCH (08:58)
[2020-06-15] MEDS: FERROUS SULFATE 325 MG TABLET PO SCH (08:58)
[2020-06-15] MEDS: ASPIRIN CHEW 81 MG TABLET PO SCH (08:58)
[2020-06-15] MEDS: CARBIDOPA/LEVODOPA 25-100 MG TABLET PO SCH ×3 (08:58→21:13)
[2020-06-15] MEDS: FOLIC ACID 1 MG TABLET PO SCH (08:58)
[2020-06-15] MEDS: hydrALAZINE 25 MG TABLET PO SCH ×3 (08:58→21:13)
[2020-06-15] MEDS: FUROSEMIDE 20 MG TABLET PO SCH (08:58)
[2020-06-15] MEDS: amLODIPine 10 MG TABLET PO SCH (08:58)
[2020-06-15] MEDS: CALCIUM (CARBONATE) 500 MG TABLET PO SCH ×2 (08:58→21:13)
[2020-06-15] MEDS: IPRATROPIUM 0.06% NASAL SPRAY 15 ML BOTTLE BOTH NARES SCH ×2 (08:59→21:23)
[2020-06-15] MEDS: VITAMIN A & D OINT 113 GM TUBE TOP SCH (08:59)
[2020-06-15] MEDS: FLUTICASONE 50 MCG NASAL SPRAY 16 GM BOTTLE BOTH NARES SCH (08:59)
[2020-06-15] MEDS: INSULIN REGULAR 100 UNIT/ML SUBCUT SCH ×4 (09:00→19:37)
[2020-06-15] MEDS ORDERED: LIDOCAINE 2% 5 ML VIAL ONE (09:00)
[2020-06-15] MEDS: INSULIN ASPART PROTAMINE/ASPART 70/30 100 UNIT/ML SUBCUT SCH ×2 (09:00→17:05)
[2020-06-15] MEDS ORDERED: ETOMIDATE 20 MG/10 ML VIAL IV ONE (09:00)
[2020-06-15] MEDS: cefTRIAXone 1,000 MG in SYRINGE 1 EACH IV SCH (10:25)
[2020-06-15] MEDS: LACTATED RINGERS 1,000 ML IV SCH (12:15)
[2020-06-15] MEDS: CITALOPRAM 20 MG TABLET PO SCH (21:13)
[2020-06-15] MEDS: MELATONIN 3 MG TABLET PO SCH (21:13)
[2020-06-15] MEDS: ATORVASTATIN 40 MG TABLET PO SCH (21:13)
[2020-06-15] MEDS: GABAPENTIN 100 MG CAPSULE PO SCH (21:14)
[2020-06-16] MEDS: ALBUTEROL 2.5 MG/3 ML NEB RESP TX SCH ×4 (00:53→20:14)
[2020-06-16] MEDS: PANTOPRAZOLE 40 MG TABLET PO SCH (06:10)
[2020-06-16] MEDS: LEVOTHYROXINE 75 MCG TABLET PO SCH (06:11)
[2020-06-16] MEDS: INSULIN REGULAR 100 UNIT/ML SUBCUT SCH ×4 (07:50→21:13)
[2020-06-16] MEDS: POLYETHYLENE GLYCOL POWDER 17 GM PACK PO SCH (08:37)
[2020-06-16] MEDS: CARBIDOPA/LEVODOPA 25-100 MG TABLET PO SCH ×3 (08:39→21:14)
[2020-06-16] MEDS: DOCUSATE SODIUM 100 MG CAPSULE PO SCH ×2 (08:39→21:14)
[2020-06-16] MEDS: FERROUS SULFATE 325 MG TABLET PO SCH (08:40)
[2020-06-16] MEDS: ASCORBIC ACID 500 MG TABLET PO SCH (08:40)
[2020-06-16] MEDS: metFORMIN 500 MG TABLET PO SCH ×2 (08:40→16:56)
[2020-06-16] MEDS: MULTIVITAMIN (CENTRUM) TABLET PO SCH (08:40)
[2020-06-16] MEDS: hydrALAZINE 25 MG TABLET PO SCH ×3 (08:40→21:14)
[2020-06-16] MEDS: ASPIRIN CHEW 81 MG TABLET PO SCH (08:40)
[2020-06-16] MEDS: predniSONE 5 MG TABLET PO SCH (08:40)
[2020-06-16] MEDS: amLODIPine 10 MG TABLET PO SCH (08:40)
[2020-06-16] MEDS: FOLIC ACID 1 MG TABLET PO SCH (08:40)
[2020-06-16] MEDS: MAGNESIUM OXIDE 400 MG TABLET PO SCH ×2 (08:40→21:14)
[2020-06-16] MEDS: CHOLECALCIFEROL 1,000 UNIT TABLET PO SCH (08:40)
[2020-06-16] MEDS: FUROSEMIDE 20 MG TABLET PO SCH (08:40)
[2020-06-16] MEDS: CALCIUM (CARBONATE) 500 MG TABLET PO SCH ×2 (08:40→21:15)
[2020-06-16] MEDS: IPRATROPIUM 0.06% NASAL SPRAY 15 ML BOTTLE BOTH NARES SCH ×2 (08:41→21:17)
[2020-06-16] MEDS: LACTATED RINGERS 1,000 ML IV SCH (08:41)
[2020-06-16] MEDS: INSULIN ASPART PROTAMINE/ASPART 70/30 100 UNIT/ML SUBCUT SCH ×2 (08:41→16:35)
[2020-06-16] MEDS: VITAMIN A & D OINT 113 GM TUBE TOP SCH (08:42)
[2020-06-16] MEDS: FLUTICASONE 50 MCG NASAL SPRAY 16 GM BOTTLE BOTH NARES SCH (08:42)
[2020-06-16] MEDS: cefTRIAXone 1,000 MG in SYRINGE 1 EACH IV SCH (10:49)
[2020-06-16] MEDS ORDERED: NITROGLYCERIN SL 0.4 MG TABLET SL PRN (11:38)
[2020-06-16] MEDS ORDERED: SODIUM PHOSPHATE ENEMA 133 ML BOTTLE RECTAL ONE (12:02)
[2020-06-16] MEDS: GABAPENTIN 100 MG CAPSULE PO SCH (21:14)
[2020-06-16] MEDS: MELATONIN 3 MG TABLET PO SCH (21:14)
[2020-06-16] MEDS: ATORVASTATIN 40 MG TABLET PO SCH (21:14)
[2020-06-16] MEDS: CITALOPRAM 20 MG TABLET PO SCH (21:15)
[2020-06-16] MEDS: ACETAMINOPHEN 325 MG TABLET PO PRN (21:15)
[2020-06-17] MEDS: ALBUTEROL 2.5 MG/3 ML NEB RESP TX SCH ×2 (00:46→07:08)
[2020-06-17] MEDS: PANTOPRAZOLE 40 MG TABLET PO SCH (06:12)
[2020-06-17] MEDS: LEVOTHYROXINE 75 MCG TABLET PO SCH (06:12)
[2020-06-17] MEDS ORDERED: busPIRone 5 MG TABLET PO SCH (09:00)
[2020-06-17] MEDS: INSULIN REGULAR 100 UNIT/ML SUBCUT SCH (09:31)
[2020-06-17] MEDS: INSULIN ASPART PROTAMINE/ASPART 70/30 100 UNIT/ML SUBCUT SCH (09:33)
[2020-06-17] MEDS: LACTATED RINGERS 1,000 ML IV SCH (09:33)
[2020-06-17 10:10] VITALS: BP 135/62
[2020-06-17] MEDS: MAGNESIUM OXIDE 400 MG TABLET PO SCH (10:17)
[2020-06-17] MEDS: MULTIVITAMIN (CENTRUM) TABLET PO SCH (10:17)
[2020-06-17] MEDS: amLODIPine 10 MG TABLET PO SCH (10:17)
[2020-06-17] MEDS: CHOLECALCIFEROL 1,000 UNIT TABLET PO SCH (10:17)
[2020-06-17] MEDS: hydrALAZINE 25 MG TABLET PO SCH (10:18)
[2020-06-17] MEDS: CARBIDOPA/LEVODOPA 25-100 MG TABLET PO SCH (10:18)
[2020-06-17] MEDS: FOLIC ACID 1 MG TABLET PO SCH (10:18)
[2020-06-17] MEDS: CALCIUM (CARBONATE) 500 MG TABLET PO SCH (10:19)
[2020-06-17] MEDS: metFORMIN 500 MG TABLET PO SCH (10:19)
[2020-06-17] MEDS: FUROSEMIDE 20 MG TABLET PO SCH (10:19)
[2020-06-17] MEDS: DOCUSATE SODIUM 100 MG CAPSULE PO SCH (10:20)
[2020-06-17] MEDS: FERROUS SULFATE 325 MG TABLET PO SCH (10:20)
[2020-06-17] MEDS: ASPIRIN CHEW 81 MG TABLET PO SCH (10:20)
[2020-06-17] MEDS: ASCORBIC ACID 500 MG TABLET PO SCH (10:20)
[2020-06-17] MEDS: predniSONE 5 MG TABLET PO SCH (10:20)
[2020-06-17] MEDS: VITAMIN A & D OINT 113 GM TUBE TOP SCH (10:21)
[2020-06-17] MEDS: IPRATROPIUM 0.06% NASAL SPRAY 15 ML BOTTLE BOTH NARES SCH (10:21)
[2020-06-17] MEDS: FLUTICASONE 50 MCG NASAL SPRAY 16 GM BOTTLE BOTH NARES SCH (10:21)
[2020-06-17] MEDS: POLYETHYLENE GLYCOL POWDER 17 GM PACK PO SCH (10:22)
[2020-06-17] MEDS: cefTRIAXone 1,000 MG in SYRINGE 1 EACH IV SCH (10:24)
== END 2020-06-17 11:25 | DRG 880 ==
LOC: EDBD → EDUNIT# → N.ED 14:22 → N.EDINP 15:27 → N.TELEN 16:16
PROVIDERS: ADMIT Internal Medicine; ATTEND Internal Medicine